=== PATIENT | male | born 1975 | race Caucasian/White ===

== ENCOUNTER 2019-05-07 05:26 | Emergency (ER) | payer MEDICARE, MEDICAID ==
[~2019-05-07] VITALS: Ht 177.8 cm; Wt 77.3 kg
[~2019-05-07 05:26] MED LIST: BACDS PO; DOCU250C96 PO; HYDR-3972 PO
[2019-05-07] MEDS ORDERED: normal saline 1000ML IV soln IVB ONE (06:25)
[2019-05-07] MEDS ORDERED: ketorolac trometh. 30mg/ml inj. IV ONE (06:25)
[2019-05-07 07:09] LABS: ALANINE AMINOTRANSFERASE 40 U/L (12-78); ALBUMIN 3.9 G/DL (3.4-5.0); ALBUMIN/GLOBULIN RATIO 0.8 (1.1-1.5); ALKALINE PHOSPHATASE 103 IU/L (46-116); ANION GAP 9 (8-16); ASPARTATE AMINO TRANSFERASE 18 U/L (10-37); BILIRUBIN,TOTAL 1.1 MG/DL (0.1-1.0); BLOOD UREA NITROGEN 17 MG/DL (7-18); CALCIUM 8.8 MG/DL (8.5-10.1); CHLORIDE 101 MMOL/L (99-107); CREATININE 0.85 MG/DL (0.60-1.10); GLUCOSE 111 MG/DL (70-104); MAGNESIUM 1.8 MG/DL (1.5-2.4); POTASSIUM 3.7 MMOL/L (3.5-5.1); SODIUM 139 MMOL/L (135-145); TOTAL CARBON DIOXIDE 29.3 MMOL/L (24-32); TOTAL PROTEIN 8.7 G/DL (6.4-8.2); eGFR > 90 ML/MIN
[2019-05-07 07:11] LABS: ETHANOL < 0.010 GM/DL (0.0-0.010)
[2019-05-07 07:12] LABS: BASOPHILS % (AUTO) 0.4 % (0-1); EOSINOPHILS # (AUTO) 0.5 X10'3 (0-0.9); EOSINOPHILS % (AUTO) 4.7 % (0-6); HEMATOCRIT 41.8 % (42.0-52.0); LYMPHOCYTES # (AUTO) 3.5 X10'3 (1.1-4.8); MEAN CORPUSCULAR HEMOGLOBIN 29.6 PG (27.0-31.0); MEAN CORPUSCULAR HGB CONC 33.6 g/dL (33.0-36.5); MEAN CORPUSCULAR VOLUME 88.1 FL (78-98); MEAN PLATELET VOLUME 8.3 FL (7.4-10.4); MONOCYTES # (AUTO) 0.8 X10'3 (0-0.9); MONOCYTES % (AUTO) 7.7 % (2-12); NEUTROPHILS % (AUTO) 51.2 % (42-75); PLATELET COUNT 244 X10'3 (140-440); RED BLOOD COUNT 4.74 X10'6 (4.70-6.10); RED CELL DISTRIBUTION WIDTH 13.7 % (11.5-14.5); WHITE BLOOD COUNT 9.8 X10'3 (4.5-11.0)
--- NOTE | 2019-05-07 09:30 | NUR ---
Pt has not urinated for UA specimen, pt refused straight cath. Dr Staples informed.
[2019-05-07] MEDS ORDERED: NO HOME MEDS (12:43)
[2019-05-07 13:22] LABS: CLARITY,URINE CLEAR (Clear); COLOR,URINE YELLOW (Yellow); GLUCOSE, URINE NEGATIVE (Neg); KETONES,URINE NEGATIVE (Neg); LEUKOCYTE ESTERASE ,URINE NEGATIVE (Neg); NITRITES, URINE NEGATIVE (Neg); OCCULT BLOOD,URINE TRACE-INTACT (Neg); PROTEIN,URINE NEGATIVE (Neg); UROBILINOGEN,URINE 0.2 E.U/dL (0.2-1.0)
[2019-05-07 13:24] LABS: UA COLLECTION TYPE URINAL
[2019-05-07] MEDS ORDERED: acetaminophen 325mg tablet PO ONE (13:30)
[2019-05-07 13:32] LABS: URINE AMPHETAMINE SCREEN POSITIVE (Neg); URINE BARBITUATE SCREEN NEGATIVE (Neg); URINE BENZODIAZEPINES SCREEN NEGATIVE (Neg); URINE CANNABINOID SCREEN NEGATIVE (Neg); URINE COCAINE SCREEN NEGATIVE (Neg); URINE METHADONE SCREEN NEGATIVE (Neg); URINE OPIATE SCREEN NEGATIVE (Neg); URINE PHENCYCLIDINE SCREEN NEGATIVE (Neg)
[2019-05-07 13:33] LABS: MUCUS STRANDS MODERATE /LPF (Neg); SQUAMOUS EPITHELIAL CELL,UR MODERATE /LPF (FEW); WBC,URINE 0-4 /HPF (0-4)
[2019-05-07 13:34] LABS: BACTERIA,URINE 1+ /HPF (Neg)
[2019-05-07] MEDS ORDERED: LORazepam 2 mg/ml vial IV ONE (13:40)
--- NOTE | 2019-05-07 14:02 | NUR ---
PACKET FAXED TO [facility]
--- NOTE | 2019-05-07 14:17 | NUR ---
PT TRANSFERRED FROM ER 13 TO OVER FLOW 23 WITH TWO RN ESCORTS.
--- NOTE | 2019-05-07 14:22 | NUR ---
PT IS RESTING.
--- NOTE | 2019-05-07 15:30 | NUR ---
Patient sleeping. No distress observed. Continue to monitor.
--- NOTE | 2019-05-07 17:35 | NUR ---
Note patricia in EDM - 05/07/19 at 1759 by HUMBERTO Patient's BP is elevated. Patient also has ECHAVARRIA. RN advised LUIS Hercules. He stated he will come see him. Patient also wants a nicotine patch. Continue to monitor.
--- NOTE | 2019-05-07 19:00 | NUR ---
Patient is awake and well oriented. He speeks quietly. Low fowlers position in bed. Patient complains of S/I, his plan was to let his amputation, (number one toe on his left foot,) become infected so he can . He states he is depressed. "I'm Gods joke." Patient admits to meth and alcohol use. He lives on the streets. To effect the infection he has not been taking his antibiotics. He states that his plan is not working. Patient complains of pain in the region of his amputation. Wound photos were taken earllier. The patient was given a meal.
[2019-05-07] MEDS ORDERED: HYDROcodone/acetaminophen 5mg/325mg tablet PO ONE (19:30)
--- NOTE | 2019-05-07 19:59 | NUR ---
Patient was given a Warden 5 for his foot pain. He has finished his meal and is resting quietyly.
[2019-05-07] MEDS ORDERED: DOXY100C43 PO (20:48)
[2019-05-07 21:13] VITALS: BP 120/67
== END 2019-05-07 21:20 ==
LOC: ER 05:26
DX: L08.89 Other specified local infections of the skin and subcutaneous tissue (principal); L53.8 Other specified erythematous conditions; E11.42 Type 2 diabetes mellitus with diabetic polyneuropathy; I10 Essential (primary) hypertension; G89.29 Other chronic pain; F41.9 Anxiety disorder, unspecified; F32.9 Major depressive disorder, single episode, unspecified; F15.90 Other stimulant use, unspecified, uncomplicated; Z59.0 Homelessness; Z89.412 Acquired absence of left great toe; Z56.0 Unemployment, unspecified; Z98.890 Other specified postprocedural states; Z79.899 Other long term (current) drug therapy
CPT/HCPCS: 36415; 71045; 73630; 80053; 80305; 80320; 81001; 83605; 83735; 84145; 85025; 85610; 87040; 96374; 96375; 99284; J1885; J2060

== ENCOUNTER 2019-07-23 17:21 | Emergency (ER) | payer MEDICARE, MEDICAID ==
[~2019-07-23] VITALS: Ht 180.3 cm; Wt 76.3 kg
[~2019-07-23 17:21] MED LIST changes: -BACDS PO; -DOCU250C96 PO; -HYDR-3972 PO; +NO HOME MEDS
[2019-07-23 17:25] VITALS: BP 137/89
[2019-07-23] MEDS ORDERED: HYDROcodone/acetaminophen 10/325mg tab PO ONE (18:00)
== END 2019-07-23 19:00 | disposition home or self-care (01) ==
LOC: ER 17:22
DX: S02.609A Fracture of mandible, unspecified, initial encounter for closed fracture (principal); E11.40 Type 2 diabetes mellitus with diabetic neuropathy, unspecified; I10 Essential (primary) hypertension; G89.29 Other chronic pain; F15.90 Other stimulant use, unspecified, uncomplicated; Z59.0 Homelessness; Z56.0 Unemployment, unspecified; Z98.890 Other specified postprocedural states; Z88.5 Allergy status to narcotic agent; Z91.041 Radiographic dye allergy status; X58.XXXA Exposure to other specified factors, initial encounter; Y93.89 Activity, other specified; Y92.89 Other specified places as the place of occurrence of the external cause; Y99.9 Unspecified external cause status
CPT/HCPCS: 99283

== ENCOUNTER 2021-05-31 15:46 | Emergency (ER) | payer MEDICARE, MEDICAID ==
[~2021-05-31] VITALS: Ht 182.9 cm; Wt 81.4 kg
[2021-05-31 16:12] VITALS: BP 114/75
== END 2021-05-31 21:45 | disposition left against medical advice (07) ==
LOC: ER 15:46
DX: R11.10 Vomiting, unspecified (principal); Z53.21 Procedure and treatment not carried out due to patient leaving prior to being seen by health care provider

== ENCOUNTER 2025-02-24 18:41 | Inpatient (IN) | payer MEDICAID, MEDICARE ==
[~2025-02-24] VITALS: Ht 180.3 cm; Wt 79.0 kg
[~2025-02-24 18:41] MED LIST changes: +AMOX-580 PO; +DOXY-224 PO; +FLUC200T28 PO; +HYDR-3972 PO; -NO HOME MEDS
[2025-02-24] MEDS: normal saline 1000ML IV soln IVB ONE ×2 (19:18)
[2025-02-24 19:19] LABS: BASOPHILS # (AUTO) 0.1 X10'3 (0-0.2); BASOPHILS % (AUTO) 0.5 % (0-1); EOSINOPHILS % (AUTO) 0.1 % (0-6); HEMATOCRIT 35.1 % (42.0-52.0); HEMOGLOBIN 12.1 g/dl (14.0-17.9); LYMPHOCYTES % (AUTO) 27.1 % (21-51); MEAN CORPUSCULAR HEMOGLOBIN 29.4 PG (27.0-31.0); MEAN CORPUSCULAR HGB CONC 34.4 g/dL (33.0-36.5); MEAN CORPUSCULAR VOLUME 85.5 FL (78-98); MEAN PLATELET VOLUME 7.3 FL (7.4-10.4); MONOCYTES # (AUTO) 0.6 X10'3 (0-0.9); MONOCYTES % (AUTO) 4.1 % (2-12); NEUTROPHILS # (AUTO) 10.2 X10'3 (1.8-7.7); NEUTROPHILS % (AUTO) 68.2 % (42-75); PLATELET COUNT 269 X10'3 (140-440); RED BLOOD COUNT 4.11 X10'6 (4.70-6.10); WHITE BLOOD COUNT 14.9 X10'3 (4.5-11.0)
[2025-02-24] MEDS: acetaminophen 1,000mg/100ml IV 100 ML IV ONE (19:19)
[2025-02-24 19:31] LABS: ALANINE AMINOTRANSFERASE 18 U/L (12-78); ALBUMIN 2.6 G/DL (3.4-5.0); ALBUMIN/GLOBULIN RATIO 0.5 (1.1-1.5); ALKALINE PHOSPHATASE 111 IU/L (46-116); ANION GAP 7 (8-16); ASPARTATE AMINO TRANSFERASE 10 U/L (10-37); BILIRUBIN,TOTAL 0.9 MG/DL (0.1-1.0); BLOOD UREA NITROGEN 9 MG/DL (7-18); BUN/CREATININE RATIO 9.3 (10.0-20.0); CALCIUM 8.3 MG/DL (8.5-10.1); CHLORIDE 97 MMOL/L (99-107); CREATININE 0.97 MG/DL (0.60-1.10); GLUCOSE 180 MG/DL (70-104); POTASSIUM 3.2 MMOL/L (3.5-5.1); SODIUM 132 MMOL/L (135-145); TOTAL CARBON DIOXIDE 28.3 MMOL/L (24-32); TOTAL PROTEIN 7.7 G/DL (6.4-8.2); eCRCL 98 ML/MIN; eGFR 82 ML/MIN
[2025-02-24] MEDS: ondansetron/PF 4mg/2ml inj IV ONE (20:01)
[2025-02-24] MEDS: HYDROmorphone 1 mg/ml syringe IV ONE (20:01)
--- NOTE | 2025-02-24 20:10 | Physician Documentation ---
History of Present Illness ~ Chief Complaint: Wound Stated Complaint: FOOT PAIN Time Seen by MD: 19:06 OK to notify your PCP?: Yes Primary Medical Doctor: Jag Whitehead MD Source: patient, RN/MD, RN notes reviewed, old records Exam Limitations: no limitations HPI 49 year old male presents to the emergency department for complaints of bilateral foot pain that has been present for two weeks. Patient states that he is homeless and has been feeling weak with fevers for a little more than a week. He has been experiencing ulcers to both of his feet that are expelling puss. He states that they began as blisters and had just gotten worse. He complains of neuropathy.He states that he does not smoke and has been non compliant with diabetes medications. Patient denies any other associated symptoms at this time. Patient denies any other alleviating or exacerbating factors. Tetanus within 5 years?: No Medication Reconciliation Allergies: Coded Allergies: Iodinated Contrast Media (Verified Allergy, Unknown, 05/07/19) Miscellaneous Medications Home Med List (No Home Medications), (Reported) Discontinued Medications Amox Tr/Potassium Clavulanate 875/125 MG (Augmentin 875/125 MG), 1 TAB PO BID Discontinued Reason: patient no longer taking Doxycycline Hyclate (Doxycycline Hyclate), 1 CAP PO Q12H Discontinued Reason: patient no longer taking Fluconazole (Fluconazole), 1 TAB PO DAILY Discontinued Reason: patient no longer taking Hydrocodone Bit/Acetaminophen (Hydrocodon-Acetaminophn 10-325 tablet), 1 EACH PO Q4H PRN for severe pain (7-10) Discontinued Reason: patient no longer taking Past Medical History Past Medical History: Peripheral Neuropathy, Hypertension, Gastritis, Diabetes, Chronic Pain, Cellulitis, *PSYCH*, Anxiety, Depression Past Surgical History: orthopedic surgeries, other Other Past Surgical History: facial surgery, ureteral stent, cardiac cat heterization Patient History: Unobtainable due to patient's condition Other Past Family History: NONCONTRIBUTORY Alcohol Use: Alcoholic Drug Use: marijuana, methamphetamine Lives In: Homeless Occupation: unemployed, disabled Review of Systems All Other Systems at this time: Reviewed and Negative ROS As stated above in the HPI, otherwise all systems are reviewed and negative. Physical Exam Vital Signs: RN Vital Signs have been reviewed: Yes, Temperature: 103.1, Source: Oral, Heart Rate: 109, Respiratory Rate: 16, BP: 128/71, Pulse Oximetry: 96, Weight: 79.000 Pulse Oximetry Reflects: adequate oxygenation Physical Exam General: Foul smelling. The patient is well developed, well nourished, nontoxic appearing and is in no acute distress. Skin: [place], warm and dry with no rashes. HEENT: Head was normocephalic and atraumatic. Eyes - pupils equal, round, reactive to light and accommodation. Extraocular movements were intact. Conjunctivae were nonicteric. Ears - bilateral tympanic membranes were normal. The mouth and oropharynx were clear with moist mucous membranes. There were no pharyngeal exudates or erythema. Neck: Supple and nontender. There was no jugular venous distention, lymphadenopathy, thyromegaly or masses. Chest: Clear to auscultation bilaterally without wheezes, rales or rhonchi. No accessory muscle use. No dullness to percussion. Heart: Rate regular and rhythmic. S1, S2. No murmurs. Palpation of the chest wall was normal. No rubs or thrills. Abdomen: Soft, nontender and nondistended. Positive bowel sounds. No guarding or rebound. No hepatosplenomegaly or palpable masses. Extremities: Bilateral edema on left foot greater than right.Both great toes are missing bilaterally. Right foot has ulcer at base of great toe with necrotic black tips to his 2nd and third toes. Left foot has signs of necrosis on all toes as the tips are black with an ulcer at the base of the great toe. The patient moves all extremities. Pulses were equal and symmetric. Neurologic: Cranial nerves II-XII were intact. Sensation was intact to light touch throughout. Motor strength was 5/5 in all four extremities. Deep tendon reflexes were intact in both upper and lower extremities. Psychologic: The patient was oriented to person, place and time. The patient demonstrated appropriate judgement and insight. Progress Progress Note 0008: The case was discussed with the hospitalist who was informed on the patients case and kindly agreed to admission. Results/Orders Reviewed/noted all lab results: Yes Results/Orders Orders - SILVERIO CARRION MD Culture Blood (02/24/25 18:46) Monitor (02/24/25 18:46) Saline Lock (02/24/25 18:46) Oxygen (02/24/25 18:46) Straight Cath For Urine Sample (02/24/25 18:46) Chest,Single View (02/24/25 19:46) Foot,Limited (Ap/Lat) (02/24/25 ) Foot,Limited (Ap/Lat) (02/24/25 ) Page Hospitalist (02/24/25 23:29) Fill Out Med Reconciliation (02/24/25 23:29) Completed Orders - SILVERIO CARRION MD Cbc/Diff (02/24/25 18:46) Procalcitonin (02/24/25 18:46) BMP (02/24/25 18:46) Electrocardiogram (02/24/25 18:46) CMP (02/24/25 18:46) Lacticsepsis (02/24/25 18:46) Chest,Single View (02/24/25 19:46) Normal Saline 1000ml (Sodium Chloride 10 (02/24/25 19:10) Normal Saline 1000ml (Sodium Chloride 10 (02/24/25 19:10) Acetaminophen 1,000mg/100ml Iv (Ofirmev (02/24/25 19:10) Troponin (Single) (02/24/25 19:05) Foot,Limited (Ap/Lat) (02/24/25 ) Foot,Limited (Ap/Lat) (02/24/25 ) Ondansetron Inj. (Zofran 4mg/2ml Vial) (02/24/25 19:55) Hydromorphone 1 Mg/Ml/Pf (Dilaudid Inj.) (02/24/25 19:55) Ethanol (02/24/25 20:04) MG (02/24/25 20:04) Myoglobin (02/24/25 20:04) CK (02/24/25 20:04) Vancomycin/Ns 1 Gm Add-[place] (Vancomyc (02/24/25 20:10) Ceftriaxone 2gm/D5w 50ml Bag (Rocephin 2 (02/24/25 20:10) Lactic,2hr (02/24/25 20:36) Ketorolac Trometh 15mg/Ml Vial (Toradol (02/24/25 21:05) Magnesium Sulf-Water 2g/50ml (Magnesium (02/24/25 23:30) Potassium Cl 10meq/100ml Bag (Potassium (02/24/25 23:30) Olanzapine Disint. Tablet (Zyprexa Zydis (02/25/25 00:17) Potassium Cl Sr Tablet (K-Dur Tablet) (02/25/25 00:33) Vital Signs 02/24/25 02/24/25 02/24/25 02/24/25 18:57 20:01 20:25 21:15 Temp 103.1 98.8 Pulse 109 92 Resp 18 16 18 18 B/P (MAP) 128/71 123/78 (93) Pulse Ox 96 100 O2 Flow Rate 0 02/24/25 02/24/25 02/24/25 22:00 22:51 23:58 Temp 100.2 Pulse 76 94 Resp 18 16 B/P (MAP) 99/56 (70) 139/90 (106) Pulse Ox 99 99 O2 Flow Rate 0 0 Laboratory Tests Test 02/24/25 19:05 02/24/25 20:46 White Blood Count 14.9 H Red Blood Count 4.11 L Hemoglobin 12.1 L Hematocrit 35.1 L Mean Corpuscular Volume 85.5 Mean Corpuscular Hemoglobin 29.4 Mean Corpuscular Hemoglobin Concent 34.4 Red Cell Distribution Width 14.0 Platelet Count 269 Mean Platelet Volume 7.3 L Neutrophils (%) (Auto) 68.2 Lymphocytes (%) (Auto) 27.1 Monocytes (%) (Auto) 4.1 Eosinophils (%) (Auto) 0.1 Basophils (%) (Auto) 0.5 Neutrophils # (Auto) 10.2 H Lymphocytes # (Auto) 4.0 Monocytes # (Auto) 0.6 Eosinophils # (Auto) 0.0 Basophils # (Auto) 0.1 CBC Comment Sodium Level 132 L Potassium Level 3.2 L Chloride Level 97 L Carbon Dioxide Level 28.3 Anion Gap 7 L Blood Urea Nitrogen 9 Creatinine 0.97 Estimated GFR/1.73 m2 82 BUN/Creatinine Ratio 9.3 L Glucose Level 180 H Lactic Acid Level 2.1 H 1.1 Calcium Level 8.3 L Magnesium Level 1.3 L Total Bilirubin 0.9 Aspartate Amino Transf (AST/SGOT) 10 Alanine Aminotransferase (ALT/SGPT) 18 Alkaline Phosphatase 111 Total Creatine Kinase 47 Myoglobin 34.0 Troponin I High Sensitivity 5 Total Protein 7.7 Albumin 2.6 L Globulin 5.1 H Albumin/Globulin Ratio 0.5 L Procalcitonin < 0.05 Chemistry Comments Ethyl Alcohol Level < 10 Microbiology Date/Time Source Procedure Growth Status 02/24/25 19:13 Blood Iv Start Blood Culture - Preliminary Positive Culture Resulted Re-Evaluation Re-Evaluation : Re-Evaluation: Improved Progress Patient was seen and examined. Patient was given reassurance. Patient is disheveled homeless with some necrotic toes pressure ulcers and bilateral weeping cellulitis of his lower extremities with high fever tachycardia. Patient received Tylenol, antibiotics which include Rocephin and vancomycin followed by multiple fluid boluses. Patient was also found to have some electrolyte abnormalities and was given both magnesium and potassium and for his agitation patient received some Zyprexa. Patient's initial laboratory work shows a WBC elevated at 14.9 hemoglobin 12 and 35 platelets 269 however no left shift. Chemistry shows a potassium of 3.2 and a magnesium of 1.3. Patient's lactic acid was elevated at 2.1 glucose elevated at 180. Sodium a bit low at 132. LFTs were within normal limits procalcitonin was normal. Tox screen was positive for methamphetamine and opiates urinalysis was reassuring but did show some hematuria in elevated WBCs with 1+ bacteria however leukocyte esterase and nitrites were both negative. Patient was then admitted for further workup and care. Vascular studies were ordered to rule out peripheral vascular disease as well as preoperative workup. Continuous monitoring coordinator interpretation shows sinus tachycardia heart rate 110s, abnormal, my interpretation. Pulse oximetry monitor interpretation shows normal oxygenation 96% room air, normal, my interpretation. EKG/XRAY/CT/US/VASC/MRI EKG : Intepreting Monitor?: Yes Additional Comment [id number]: MARTHA Carrion interpreted EKG to reveal sinus tachycardia at a rate of 109. Patient had good R wave progression with normal axis and normal intervals. Qtc of 429. Chest X-Ray : Additional Comments Clinical History CP Comparison None Without Contrast GRANT GARZA, [id number] Technique: Single view portable upright chest x-ray Findings: The lungs are unremarkable. No pleural abnormality. The cardiomediastinal silhouette is unremarkable for an AP view. No acute osseous abnormality. The imaged part of the upper abdomen is unremarkable. Impression: No evidence of acute cardiopulmonary disease This report was electronically signed by Lizbet Siegel MD on 02/24/2025 8:13:29 PM. Electronically Signed by:LIZBET SIEGEL MD Date & Time: 02/24/252015 Bone/Soft Tissue X-Ray (Ext.) #1: Additional Comment Clinical History BILATERAL FEET, ?OSTEO, SEPSIS left Comparison None Without Contrast GRANT GARZA, [id number] TECHNIQUE: 2 views of the left foot. FINDINGS: Postsurgical changes related to left hallux amputation. Soft tissue emphysema is seen in the skin overlaying the head of the first metatarsal bone, clinical correlation to evaluate for localized soft tissue infection/wound is recommended. Degenerative changes of the head of the first metatarsal bone. No destructive lytic or sclerotic lesions. No evidence of acute displaced fracture or dislocation. 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 Tiny superficial subcutaneous soft tissue calcific foci IMPRESSION: No evidence of acute osseous abnormality. Soft tissue emphysema is seen in the skin overlaying the head of the first metatarsal bone in the amputation surgical bed, clinical correlation to evaluate for localized soft tissue infection/wound is recommended. This report was electronically signed by Lizbet Siegel MD on 02/24/2025 8:17:51 PM. Electronically Signed by:LIZBET SIEGEL MD Date & Time: 02/24/252019 Bone/Soft Tissue X-Ray (Ext.) #2: Additional Comment Clinical History BILAT FEET, ? OSTEO, SEPSIS right Comparison None Without Contrast GRANT GARZA, [id number] TECHNIQUE: 2 views of the right foot. FINDINGS: Postsurgical changes related to right hallux amputation. No destructive lytic or sclerotic lesions. No evidence of acute displaced fracture or dislocation. 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 Tiny superficial subcutaneous soft tissue calcific foci IMPRESSION: No evidence of acute osseous abnormality. This report was electronically signed by Lizbet Siegel MD on 02/24/2025 8:15:47 PM. Electronically Signed by:LIZBET SIEGEL MD Date & Time: 02/24/252017 Medical Decision Making Additional info obtained from: old records Differential Dx:Considerations: Include: Abscess, Cellulitis, Dressing change, Healing wound, Other Departure Disposition: 09 ADMITTED INPATIENT Admitted to Inpatient Unit: yes, to hospitalist Admission Level of Care: PCU with Tele Impression: Primary Impression: Sepsis Qualified Codes: A41.9 - Sepsis, unspecified organism Additional Impressions: Bilateral lower extremity edema Bilateral pressure ulcer of feet Hypokalemia Hypomagnesemia Necrotic toes Condition: Fair Referrals: NO PRIMARY CARE PROVIDER (PCP) Education Educated: Patient Educated regarding: diagnosis, treatment, prognosis, need for follow up Critical Care Note Total Time (mins): 30 Critical Care Note The very real possibility of a deterioration of this patient's condition required the highest level of my preparedness for sudden, emergent intervention. I provided critical care services, which included medication orders, frequent reevaluations of the patient's condition and response to treatment, ordering and reviewing test results, and discussing the case with various consultants. Excludes time spent performing separately billable procedures. The critical care time associated with the care of the patient was. 30 minutes sepsis Signature Scribe Signature: Scribed for Silverio Carrion MD by Sumit Gabriel . 02/24/25 20:50 Attestation: The note accurately reflects work and decisions made by me.Silverio Carrion MD 02/24/25 20:10 SILVERIO CARRION MD Feb 24, 2025 20:10 SUMIT BALLARD Feb 24, 2025 20:50
--- NOTE | 2025-02-24 20:16 | RADIOLOGY REPORT ---
Clinical History CP Comparison None Without Contrast GRANT GARZA, [id number] Technique: Single view portable upright chest x-ray Findings: The lungs are unremarkable. No pleural abnormality. The cardiomediastinal silhouette is unremarkable for an AP view. No acute osseous abnormality. The imaged part of the upper abdomen is unremarkable. Impression: No evidence of acute cardiopulmonary disease This report was electronically signed by Lizbet Fink MD on 02/24/2025 8:13:29 PM.
[2025-02-24] MEDS: CefTRIAXone 2gm/D5W 50ml BAG 50 ML IV ONE (20:18)
[2025-02-24] MEDS: vancomycin/NS 1 GM ADD-VANTAGE 250 ML IV ONE (20:18)
--- NOTE | 2025-02-24 20:18 | RADIOLOGY REPORT ---
Clinical History BILAT FEET, ? OSTEO, SEPSIS right Comparison None Without Contrast GRANT GARZA, [id number] TECHNIQUE: 2 views of the right foot. FINDINGS: Postsurgical changes related to right hallux amputation. No destructive lytic or sclerotic lesions. No evidence of acute displaced fracture or dislocation. Osteoarthritis of the small joints of the to es. Tiny superficial subcutaneous soft tissue calcific foci IMPRESSION: No evidence of acute osseous abnormality. This report was electronically signed by Lizbet Fink MD on 02/24/2025 8:15:47 PM.
--- NOTE | 2025-02-24 20:20 | RADIOLOGY REPORT ---
Clinical History BILATERAL FEET, ?OSTEO, SEPSIS left Comparison None Without Contrast GRANT GARZA, [id number] TECHNIQUE: 2 views of the left foot. FINDINGS: Postsurgical changes related to left hallux amputation. Soft tissue emphysema is seen in the skin ov erlaying the head of the first metatarsal bone, clinical correlation to evaluate for localized soft t issue infection/wound is recommended. Degenerative changes of the head of the first metatarsal bone. No destructive lytic or sclerotic lesions. No evidence of acute displaced fracture or dislocation. Osteoarthritis of the small joints of the to es. Tiny superficial subcutaneous soft tissue calcific foci IMPRESSION: No evidence of acute osseous abnormality. Soft tissue emphysema is seen in the skin overlaying the head of the first metatarsal bone in the amp utation surgical bed, clinical correlation to evaluate for localized soft tissue infection/wound is r ecommended. This report was electronically signed by Lizbet Fink MD on 02/24/2025 8:17:51 PM.
[2025-02-24 20:39] LABS: CREATINE KINASE 47 U/L (39-308); MAGNESIUM 1.3 MG/DL (1.5-2.4)
[2025-02-24 20:42] LABS: ETHANOL < 10 MG/DL (<10)
[2025-02-24] MEDS: ketorolac trometh 15mg/ml vial 15 MG/ML ML IV ONE (21:15)
[2025-02-24] MEDS: magnesium sulf-water 2g/50mL 50 ML IV ONE (23:54)
[2025-02-24] MEDS: potassium CL 10mEq/100ml bag 100 ML IV ONE (23:54)
[2025-02-25] VITALS (12 sets, daily range): BP systolic 76–124; BP diastolic 40–77; PULSE 58–109; RESP 12–20; TEMP 97.6–103; O2SAT 94–99
[2025-02-25] MEDS ORDERED: NO HOME MEDS (00:02)
[2025-02-25] MEDS ORDERED: olanzapine 10mg tablet PO STA (00:06)
[2025-02-25] MEDS: OLANZapine 5mg rapidly disint. tablet PO STA (00:34)
[2025-02-25] MEDS ORDERED: potassium Cl 20 mEq SR tablet PO PRN (01:00)
[2025-02-25] MEDS ORDERED: ondansetron/PF 4mg/2ml inj IV PRN (01:00)
[2025-02-25] MEDS ORDERED: magnesium sulf-water 2g/50mL 50 ML IV PRN (01:00)
[2025-02-25] MEDS ORDERED: potassium Cl 40MEQ/1/2NS 520ml 520 ML IV PRN (01:00)
[2025-02-25] MEDS ORDERED: magnesium sulf-water 4G/100mL 100 ML IV PRN (01:00)
[2025-02-25] MEDS ORDERED: magnesium hydroxide 30ml (MOM) UD suspension PO PRN (01:00)
[2025-02-25] MEDS ORDERED: mag hydrox/Alum hydrox/simeth 30ml oral suspension PO PRN (01:00)
[2025-02-25] MEDS: potassium Cl 20 mEq SR tablet PO STA (01:08)
[2025-02-25] MEDS ORDERED: LORazepam 2 mg/ml vial IV PRN (01:50)
[2025-02-25] MEDS ORDERED: haloperidol lactate 5mg/ml inj IM PRN (01:50)
[2025-02-25 03:18] LABS: HEMOGLOBIN A1C 5.6 % (4.5-6.2)
[2025-02-25 03:21] LABS: MAGNESIUM 1.6 MG/DL (1.5-2.4); POTASSIUM 3.8 MMOL/L (3.5-5.1)
[2025-02-25] MEDS: piperacillin/tazo 3.375gm/50ml 50 ML IV SCH (04:23)
--- NOTE | 2025-02-25 04:41 | HISTORY AND PHYSICAL-Residence ---
History & Physical Providers to CC Resident Creating Document: DAVID WHITT, [place] ~ History of Present Illness Primary Medical Doctor: Jag Whitehead MD Reason for Admit\Complaint: Sepsis, bilateral necrotic toes and infected foot wound History of Present Illness 49-year-old male with a past medical history of alcohol use disorder, polysubstance abuse, homelessness was brought in to the ER after the [place] and [place] the [place] called EMS. Patient complains of pain, swelling and redness in his bilateral foot since the past couple of weeks. He reports nonhealing wound, ulcers on the plantar surface of his feet that have been associated with foul smell and discharge. He has been having worsening fatigue weakness, chills and fever during the last two weeks. He also endorses generalized abdominal discomfort and nausea. He stated that he has had similar infected bilateral greater toes in the past for which they have to be amputated. The patient states that he has been homeless for quite a while, does not see any primary care physician and does not take any medication at home. He endorses drinking one pt of hard liquor every other day and also states that he uses her methamphetamine every day. Patient currently denies any other concerns or complaints. Allergies: Coded Allergies: Iodinated Contrast Media (Verified Allergy, Unknown, 05/07/19) Home Medications Home Medications Active Reported No Home Medications (Home Med List) Each Past Medical History Past Medical History Polysubstance abuse, alcohol use disorder, peripheral neuropathy Past Surgical History Surgical History Comment Bilateral greater toe amputation Family History Family History: Unobtainable due to patient's condition Past Social History Social History Comment Homeless Polysubstance abuse Alcohol use disorder Smoking: Chew Alcohol Use: Alcoholic Drug Use: Marijuana, Methamphetamine Lives In: Homeless Occupation: unemployed, disabled ROS All Other Systems: Reviewed and Negative ROS As stated above in the HPI, otherwise all systems are reviewed and negative. Exam Vitals: Vital Signs Date Time Temp Pulse Resp B/P (MAP) Pulse Ox O2 Delivery O2 Flow Rate FiO2 02/25/25 03:30 88 18 116/69 (85) 99 0 02/24/25 23:58 100.2 General: General: Awake, alert, very unkept and unhygienic male in moderate distress. HEENT: Conjunctiva pink, Sclera clear, Mucus Membranes moist. Neck: Supple without masses and tenderness. Resp: Unlabored. Lungs clear to auscultation bilaterally. Heart: Regular Rate and rhythm, normal S1 and S2 without murmur, rub or gallop. Abdomen: Soft and non tender no organomegaly Extremities: Bilateral lower extremity 1+ edema present. Necrotic toes present on bilateral feet. There is open wound on the plantar surface of bilateral feet with foul-smelling purulent discharge. Bilateral 3+ peripheral pulses noted. Skin: Warm and Dry. Neurology: No focal motor or sensory deficits. Diagnostic Data Last Recorded Lab Results: 02/24/25 1905 02/25/25 0257 Advance Care Planning Advanced Care planning: Add on additional 30 min Additional Plan Sepsis Nonhealing infected wound of bilateral feet Necrotic toes on bilateral feet Right foot x-ray-no evidence of osseous abnormalities Left foot x-ray no evidence of acute osseous abnormality. Soft tissue emphysema seen in the skin overlying the 1st metatarsal bone most likely secondary to infected soft tissue/wound. Orthopedic consultation required. Patient will likely require amputation of the necrotic toes. Started the patient on broad-spectrum antibiotic and-IV vancomycin and Zosyn. Follow up with blood cultures and wound cultures. Wound care consulted appreciate recommendations. Follow up with A1c, lipid panel. Follow up with the bilateral lower extremity arterial Doppler and KARINA. Polysubstance abuse Alcohol use disorder Started the patient on alcohol withdrawal protocol. Started him on IV thiamine, folic acid and multivitamin. Fudger to be consulted in view of the patient's meth and alcohol use disorder. Hypokalemia Hyponatremia We will replace potassium as per the protocol. Continue to monitor the electrolytes closely. CODE STATUS: Full code DVT prophylaxis: SCDs GI prophylaxis: P.o. Protonix Diet: Carb controlled diet Disposition: Admitting the patient for evaluation and management of bilateral lower extremity necrotic tissue, nonhealing infected wound on bilateral plantar surfaces of the feet leading to sepsis. Consult resolution specialist in the a.m. tomorrow. David Whitt MD Internal Medicine Resident, PGY-2 Date of Service: Feb 25, 2025 Billing Provider: PAYAL MALDONADO MD Common Visit Codes: 95850-[id number] INP/OBS CARE (HIGH) Assessment/Plan Assessment I evaluated the patient with the help of residents. Discussed the case with them. Reviewed notes by DAVID Ambrosio. Agree with his assessments and plans. I also reviewed the patient's records myself. No additional points at this time. Patient to be maintained on antibiotics. Hemoglobin A1c pending DAVID WHITT, RES Feb 25, 2025 04:41 PAYAL MALDONADO MD Feb 25, 2025 06:13
--- NOTE | 2025-02-25 07:00 | ELECTROCARDIOGRAPH REPORT ---
[facility] Test Date: 2025-02-24 Test Time: 18:49:05 Pat Name: GRANT GARZA Department: EMERGENCY ROOM Room: ORTHO 4022 Gender: M Media Assistant: STEVEN : 1975 Requested By: SILVERIO WINTERS Order Number: [id number] Reading MD: Dr. Silverio Winters Measurements Intervals [place] Rate: 109 P: 0 FL: 0 QRS: 35 QRSD: 105 T: 45 QT: 318 QTc: 429 Interpretive Statements Atrial flutter with predominant 3:1 AV block Baseline wander in lead(s) V2 Electronically Signed On 02-25-2025 18:19:[address] Silverio Winters Please click the below link to view image of tracing.
[2025-02-25 07:03] LABS: BILIRUBIN,URINE MODERATE (Neg); CLARITY,URINE CLEAR (Clear); GLUCOSE, URINE 100 mg/dl (Neg); KETONES,URINE TRACE mg/dl (Neg); LEUKOCYTE ESTERASE ,URINE NEGATIVE (Neg); OCCULT BLOOD,URINE LARGE (Neg); PROTEIN,URINE 30 mg/dl (Neg); UROBILINOGEN,URINE >=8.0 E.U/dL (0.2-1.0)
[2025-02-25 07:10] LABS: COLOR,URINE DARK YELLOW (Yellow); NITRITES, URINE NEGATIVE (Neg); UA COLLECTION TYPE NON-SPECIFIED
[2025-02-25 07:12] LABS: BACTERIA,URINE 1+ /HPF (Neg); MUCUS STRANDS MODERATE /LPF (Neg); RBC,URINE 20-50 /HPF (0-2); SQUAMOUS EPITHELIAL CELL,UR MODERATE /LPF (FEW); WBC,URINE 20-30 /HPF (0-4)
[2025-02-25 07:25] LABS: URINE AMPHETAMINE SCREEN POSITIVE (Neg); URINE BARBITUATE SCREEN NEGATIVE (Neg); URINE BENZODIAZEPINES SCREEN NEGATIVE (Neg); URINE CANNABINOID SCREEN NEGATIVE (Neg); URINE COCAINE SCREEN NEGATIVE (Neg); URINE METHADONE SCREEN NEGATIVE (Neg); URINE OPIATE SCREEN POSITIVE (Neg); URINE PHENCYCLIDINE SCREEN NEGATIVE (Neg)
[2025-02-25] MEDS: pantoprazole 40mg Tablet.DR PO SCH (07:38)
[2025-02-25] MEDS: acetaminophen 325mg tablet PO PRN (07:40)
[2025-02-25] MEDS: morphine 2 MG/ML inj. syringe IV PRN (07:41)
[2025-02-25] MEDS: K and/or MAG REPLACEMENT MC SCH (08:00)
[2025-02-25] MEDS ORDERED: vancomycin/NS 1 GM ADD-VANTAGE 250 ML IV SCH ×2 (08:00→08:06)
[2025-02-25 08:40] LABS: BASOPHILS % (AUTO) 0.3 % (0-1); EOSINOPHILS % (AUTO) 0 % (0-6); HEMATOCRIT 31.5 % (42.0-52.0); HEMOGLOBIN 10.9 g/dl (14.0-17.9); LYMPHOCYTES # (AUTO) 3.2 X10'3 (1.1-4.8); LYMPHOCYTES % (AUTO) 29.6 % (21-51); MEAN CORPUSCULAR HEMOGLOBIN 29.4 PG (27.0-31.0); MEAN CORPUSCULAR HGB CONC 34.5 g/dL (33.0-36.5); MEAN CORPUSCULAR VOLUME 85.3 FL (78-98); MEAN PLATELET VOLUME 7.3 FL (7.4-10.4); MONOCYTES # (AUTO) 0.4 X10'3 (0-0.9); MONOCYTES % (AUTO) 3.9 % (2-12); NEUTROPHILS # (AUTO) 7.2 X10'3 (1.8-7.7); NEUTROPHILS % (AUTO) 66.2 % (42-75); PLATELET COUNT 214 X10'3 (140-440); RED CELL DISTRIBUTION WIDTH 13.7 % (11.5-14.5); WHITE BLOOD COUNT 10.9 X10'3 (4.5-11.0)
[2025-02-25] MEDS: multivitamins, therapeutics tablet PO SCH (08:42)
[2025-02-25] MEDS: thiamine 100mg/ml 2ml inj. IV SCH (08:42)
[2025-02-25] MEDS: docusate sod 100mg capsule PO SCH (08:43)
[2025-02-25 08:52] LABS: ALANINE AMINOTRANSFERASE 13 U/L (12-78); ALBUMIN 2.2 G/DL (3.4-5.0); ALBUMIN/GLOBULIN RATIO 0.5 (1.1-1.5); ALKALINE PHOSPHATASE 106 IU/L (46-116); ANION GAP 5 (8-16); ASPARTATE AMINO TRANSFERASE 13 U/L (10-37); BILIRUBIN,TOTAL 1.2 MG/DL (0.1-1.0); BLOOD UREA NITROGEN 11 MG/DL (7-18); BUN/CREATININE RATIO 13.1 (10.0-20.0); CALCIUM 7.7 MG/DL (8.5-10.1); CHLORIDE 100 MMOL/L (99-107); CREATININE 0.84 MG/DL (0.60-1.10); GLUCOSE 120 MG/DL (70-104); POTASSIUM 3.7 MMOL/L (3.5-5.1); SODIUM 131 MMOL/L (135-145); TOTAL CARBON DIOXIDE 26.2 MMOL/L (24-32); TOTAL PROTEIN 6.5 G/DL (6.4-8.2); eCRCL 113 ML/MIN; eGFR > 90 ML/MIN
[2025-02-25] MEDS: vancomycin/NS 1 GM ADD-VANTAGE 250 ML IV SCH (09:32)
[2025-02-25] MEDS: folic acid 1mg/0.2ml inj IV SCH (09:33)
--- NOTE | 2025-02-25 11:28 | VASCULAR REPORT ---
EXAM: [facility] KARINA ANKLE/BRACHIAL INDEX CLINICAL HISTORY: Nonhealing wounds Peripheral vascular disease COMPARISON: KARINA on DOS: 03/20/19 TECHNIQUE: Bilateral systolic ankle and brachial pressures are obtained, with ankle pulse volume waveforms and i ndices. FINDINGS: Pressures: Right Left Brachial 90 mmHg 110 mmHg PT 110 mmHg 102 mmHg MI 100 mmHg 90 mmHg KARINA: Right Left 1 0.93 Pulse volume waveforms: Triphasic IMPRESSION: Mild left arterial disease at rest No arterial disease at rest. Notified nurse notified about 20 mm HG difference in brachial pressures. 1.0-1.4: normal 0.91-0.99 borderline 0.9: abnormal (i.e. PAD) 0.4-0.9: [id number] PAD <0.4: suggestive of severe PAD
--- NOTE | 2025-02-25 11:46 | VASCULAR REPORT ---
BILATERAL Lower Extremity Arterial Duplex Date: 02/25/2025 09:04 AM Clinical History: Pain with nonhealing wounds Comparison: None Technique: Duplex Doppler evaluation including color Doppler and spectral/pulsed waveform analysis of the lower extremity arteries was performed. Finding: RIGHT: Peak systolic velocities are as follows: PUBLIC RELATIONS PROFESSIONAL 113 cm/s Deep femoral 72 cm/s SFA proximal 101 cm/s SFA mid-portion 146 cm/s SFA distal 122 cm/s Popliteal 135 cm/s Posterior tibial 115 cm/s Anterior tibial 112 cm/s Peroneal 64 cm/s The waveforms are triphasic with diastolic flow. LEFT: Peak systolic velocities are as follows: PUBLIC RELATIONS PROFESSIONAL 100 cm/s Deep femoral 74 cm/s SFA proximal 70 cm/s SFA mid-portion 134 cm/s SFA distal 96 cm/s Popliteal 91 cm/s Posterior tibial 102 cm/s Anterior tibial 100 cm/s Peroneal 76 cm/s The waveforms are triphasic with diastolic flow. REFERENCE VALUES, [facility]) vascular Imaging Lab Criteria: Peak systolic velocity ranges (in cm/sec) are as follows: <150 cm/s - <20 % stenosis 150-200 cm/s - 20-49% stenosis 200-300 cm/s - 50-75% stenosis >300 cm/s -> 75% stenosis IMPRESSION: There is no evidence for peripheral vascular insufficiency in the right lower extremity. There is no evidence for peripheral vascular insufficiency in the left lower extremity. No significant focal stenosis is identified.
[2025-02-25] MEDS: lactose-reduced food (Ensure High Protein) 237ml bottle PO SCH (12:30)
[2025-02-25] MEDS: JUVEN Smoothie Arginine/Glut./Ca2+Bmb (Juven 19.3pkt) 240ml cup PO SCH (19:00)
[2025-02-25] MEDS: acetaminophen 650mg rectal suppository RC ONE (19:13)
[2025-02-25] MEDS: normal saline 1000ml 1,000 ML IV SCH (19:21)
[2025-02-25] MEDS: LORazepam 1 MG tablet PO PRN (19:29)
[2025-02-25] MEDS: VANCOmycin 1250MG/NS 250ml Bag 250 ML IV SCH (22:43)
[2025-02-26] VITALS (9 sets, daily range): BP systolic 82–158; BP diastolic 55–83; PULSE 57–92; RESP 14–18; TEMP 97.8–100; O2SAT 94–98
[2025-02-26 07:37] LABS: BASOPHILS % (AUTO) 0.2 % (0-1); EOSINOPHILS % (AUTO) 0.4 % (0-6); HEMATOCRIT 29.5 % (42.0-52.0); HEMOGLOBIN 10.4 g/dl (14.0-17.9); LYMPHOCYTES % (AUTO) 32.2 % (21-51); MEAN CORPUSCULAR HGB CONC 35.3 g/dL (33.0-36.5); MEAN CORPUSCULAR VOLUME 84.8 FL (78-98); MONOCYTES # (AUTO) 0.5 X10'3 (0-0.9); MONOCYTES % (AUTO) 7.3 % (2-12); NEUTROPHILS # (AUTO) 3.8 X10'3 (1.8-7.7); NEUTROPHILS % (AUTO) 59.9 % (42-75); PLATELET COUNT 190 X10'3 (140-440); RED BLOOD COUNT 3.48 X10'6 (4.70-6.10); RED CELL DISTRIBUTION WIDTH 13.6 % (11.5-14.5); WHITE BLOOD COUNT 6.3 X10'3 (4.5-11.0)
[2025-02-26 07:46] LABS: ALANINE AMINOTRANSFERASE 26 U/L (12-78); ALBUMIN 1.9 G/DL (3.4-5.0); ALBUMIN/GLOBULIN RATIO 0.5 (1.1-1.5); ALKALINE PHOSPHATASE 133 IU/L (46-116); ANION GAP 6 (8-16); ASPARTATE AMINO TRANSFERASE 30 U/L (10-37); BILIRUBIN,TOTAL 0.4 MG/DL (0.1-1.0); BLOOD UREA NITROGEN 10 MG/DL (7-18); BUN/CREATININE RATIO 12.5 (10.0-20.0); CALCIUM 7.8 MG/DL (8.5-10.1); CHLORIDE 104 MMOL/L (99-107); GLUCOSE 162 MG/DL (70-104); POTASSIUM 3.5 MMOL/L (3.5-5.1); SODIUM 136 MMOL/L (135-145); TOTAL CARBON DIOXIDE 25.7 MMOL/L (24-32); TOTAL PROTEIN 6.1 G/DL (6.4-8.2); eCRCL 119 ML/MIN; eGFR > 90 ML/MIN
[2025-02-26 07:48] LABS: CHOL/HDL RATIO 3.1 (0.00-4.99); CHOLESTEROL 99 MG/DL (0-200); HDL CHOLESTEROL 32 MG/DL (35-60); LDL CHOLESTEROL 59 MG/DL (50-100); MAGNESIUM 1.6 MG/DL (1.5-2.4); TRIGLYCERIDES 35 MG/DL (20-135); VANCOMYCIN,TROUGH 6.7 ug/mL (10.0-20.0)
[2025-02-26] MEDS: diazepam inj 5 MG/ML inj. IV PRN (08:29)
[2025-02-26] MEDS: normal saline 500ml IV soln 500 ML IV ONE (09:30)
--- NOTE | 2025-02-26 21:21 | PROGRESS NOTE- Residence ---
Progress Note - Resident Providers to CC Resident Creating Document: SHERYL STOUT RES ~ Antibiotic Timeout Antibiotic Ordered?: Yes Subjective Patient is seen and examined at the bedside today. Awaiting consultation from Dr. Nichole. Objective Vital Signs Date Time Temp Pulse Resp B/P (MAP) Pulse Ox O2 Delivery O2 Flow Rate FiO2 02/26/25 16:45 16 02/26/25 15:58 100.0 02/26/25 10:00 78 158/83 (108) 96 02/26/25 08:01 Room Air 02/26/25 08:00 0.0 Result Diagram: 02/26/25 0710 02/26/25 0710 General: Awake, alert, very unkept and unhygienic male in moderate distress. HEENT: Conjunctiva pink, Sclera clear, Mucus Membranes moist. Neck: Supple without masses and tenderness. Resp: Unlabored. Lungs clear to auscultation bilaterally. Heart: Regular Rate and rhythm, normal S1 and S2 without murmur, rub or gallop. Abdomen: Soft and non tender no organomegaly Extremities: Bilateral lower extremity 1+ edema present. Necrotic toes present on bilateral feet. There is open wound on the plantar surface of bilateral feet with foul-smelling purulent discharge. Bilateral 3+ peripheral pulses noted. Skin: Warm and Dry. Neurology: No focal motor or sensory deficits. Plan Plan Assessment This is a 49-year-old male with past medical history of alcohol use disorder, polysubstance abuse, homelessness, history of great toe amputation, was brought to the ER after he [place] [employer] [place]. Complaints of pain, swelling and redness in the bilateral foot. Plan Sepsis Nonhealing infected wound of bilateral feet Necrotic toes on bilateral feet Right foot x-ray-no evidence of osseous abnormalities Left foot x-ray no evidence of acute osseous abnormality. Soft tissue emphysema seen in the skin overlying the 1st metatarsal bone most likely secondary to infected soft tissue/wound. Left and right foot MRI ordered Arterial and vascular ultrasound of bilateral foot-normal Continued-IV vancomycin and Zosyn. -day two First blood cultures positive for Gram-positive cocci Repeated blood cultures showed no growth after one day. Wound care consulted appreciate recommendations. Polysubstance abuse Alcohol use disorder Started the patient on alcohol withdrawal protocol. Started him on IV thiamine, folic acid and multivitamin. Flexographic Press Helper to be consulted in view of the patient's meth and alcohol use disorder. Hypokalemia Hyponatremia We will replace potassium as per the protocol. Continue to monitor the electrolytes closely. CODE STATUS: Full code DVT prophylaxis: SCDs GI prophylaxis: P.o. Protonix Diet: Carb controlled diet Disposition-follow up with the MRI results. Follow up with Dr. Cora Stout M.D PGY1 Date of Service: February 26, 2025 Billing Provider: LEONARD AUGUSTIN MD Common Visit Codes: [id number] INP/OBS CARE(HIGH) SHERYL STOUT, RES February 26, 2025 21:21 LEONARD AUGUSTIN MD February 27, 2025 07:09
[2025-02-27 05:02] LABS: BASOPHILS % (AUTO) 0.3 % (0-1); EOSINOPHILS # (AUTO) 0.1 X10'3 (0-0.9); EOSINOPHILS % (AUTO) 0.9 % (0-6); HEMATOCRIT 30.7 % (42.0-52.0); HEMOGLOBIN 10.5 g/dl (14.0-17.9); LYMPHOCYTES # (AUTO) 4.3 X10'3 (1.1-4.8); LYMPHOCYTES % (AUTO) 36.8 % (21-51); MEAN CORPUSCULAR HEMOGLOBIN 28.8 PG (27.0-31.0); MEAN CORPUSCULAR HGB CONC 34.1 g/dL (33.0-36.5); MEAN CORPUSCULAR VOLUME 84.6 FL (78-98); MEAN PLATELET VOLUME 7.9 FL (7.4-10.4); MONOCYTES # (AUTO) 0.8 X10'3 (0-0.9); MONOCYTES % (AUTO) 6.8 % (2-12); NEUTROPHILS # (AUTO) 6.5 X10'3 (1.8-7.7); NEUTROPHILS % (AUTO) 55.2 % (42-75); PLATELET COUNT 210 X10'3 (140-440); RED BLOOD COUNT 3.63 X10'6 (4.70-6.10); RED CELL DISTRIBUTION WIDTH 13.6 % (11.5-14.5); WHITE BLOOD COUNT 11.7 X10'3 (4.5-11.0)
[2025-02-27 05:13] LABS: ALANINE AMINOTRANSFERASE 32 U/L (12-78); ALBUMIN/GLOBULIN RATIO 0.5 (1.1-1.5); ALKALINE PHOSPHATASE 148 IU/L (46-116); ANION GAP 4 (8-16); ASPARTATE AMINO TRANSFERASE 24 U/L (10-37); BILIRUBIN,TOTAL 0.3 MG/DL (0.1-1.0); BLOOD UREA NITROGEN 7 MG/DL (7-18); BUN/CREATININE RATIO 9.3 (10.0-20.0); CHLORIDE 100 MMOL/L (99-107); CREATININE 0.75 MG/DL (0.60-1.10); GLUCOSE 106 MG/DL (70-104); MAGNESIUM 1.2 MG/DL (1.5-2.4); POTASSIUM 3.4 MMOL/L (3.5-5.1); SODIUM 132 MMOL/L (135-145); TOTAL CARBON DIOXIDE 27.6 MMOL/L (24-32); TOTAL PROTEIN 6.2 G/DL (6.4-8.2); eCRCL 127 ML/MIN; eGFR > 90 ML/MIN
[2025-02-27] MEDS: VANCOMYCIN LEVEL IV ONE (08:30)
[2025-02-27] MEDS: magnesium Cl slow-release 64mg tablet PO PRN (09:33)
[2025-02-27] MEDS: potassium Cl 20 mEq SR tablet PO PRN (09:33)
[2025-02-27 10:00] VITALS: BP 120/68; PULSE 89; RESP 20; TEMP 98.7; O2SAT 95
--- NOTE | 2025-02-27 13:08 | RADIOLOGY REPORT ---
EXAM: MR MRI LOWER EXTREMITY RIGHT; DATE: 02/26/2025 06:33 PM HISTORY: possible osteomyelitis COMPARISON: MRI LOWER EXTREMITY LEFT on DOS: 03/20/19 TECHNIQUE: Multiplanar, multisequence MRI was performed. FINDINGS: Multiple skin ulcerations are noted. There is bone marrow edema and cortical erosion involving the 2 nd , 3rd and 4th proximal and middle phalanges. Bone marrow edema noted involving the 3rd distal pha lanx . Remote great toe amputation at the level of the MTP joints. No drainable fluid collection note d in this limited unenhanced study. Moderate plantar musculature edema that may reflect reactive sofiya a or myositis. Moderate dorsal foot subcutaneous edema. The flexor and extensor tendons are intact. V isualized plantar fascia is unremarkable. IMPRESSION: 1.Acute osteomyelitis noted involving the 2nd, 3rd and 4th toes with overlying skin ulcerations. No drainable fluid collection.
--- NOTE | 2025-02-27 13:15 | RADIOLOGY REPORT ---
EXAM: MR MRI LOWER EXTREMITY LEFT; DATE: 02/26/2025 06:11 PM HISTORY: possible osteomyelitis COMPARISON: MRI LOWER EXTREMITY LEFT on DOS: 03/20/19 TECHNIQUE: Multiplanar, multisequence MRI of the left foot was performed without IV contrast. FINDINGS: Suboptimal motion degraded study. Cortical erosion noted in the plantar aspect of great toe head associated edema that extends to mid s haft compatible with osteomyelitis. Large overlying plantar ulcer is seen. No drainable fluid colle ction in this limited unenhanced study. 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 Remote great toe ampu tation. Mild plantar musculature edema that may represent reactive edema or myositis. The visualized plantar fascia is unremarkable. No tenosynovitis of the flexor and extensor tendons. IMPRESSION: 1. Acute osteomyelitis of the distal half of the 1st metatarsal with an underlying plantar ulcer. No drainable fluid collection.
--- NOTE | 2025-02-27 14:49 | PROGRESS NOTE- Residence ---
Progress Note - Resident Providers to CC Resident Creating Document: ROSSANA DEVINE, [place] CC: LEONARD AUGUSTIN MD ~ Antibiotic Timeout Antibiotic Ordered?: Yes Subjective Patient is seen and examined at the bedside today. Awaiting consultation from Dr. Nichole. Objective Vital Signs Date Time Temp Pulse Resp B/P (MAP) Pulse Ox O2 Delivery O2 Flow Rate FiO2 02/27/25 12:38 18 02/27/25 08:00 Room Air 02/26/25 20:00 98 02/26/25 18:00 98.6 92 102/59 (73) 02/26/25 08:00 0.0 Result Diagram: 02/27/250 02/27/25 0440 General: Alert, awake, oriented, not in acute distress HEENT: PERRLA, no icterus, pallor, lymphadenopathy, carotid bruit Respiratory system: Bilateral vesicular breath sounds heard, no adventitious breath sounds CVS: S1-S2 heard, no murmurs/rubs/gallop GI: Soft, nontender, no organomegaly, no guarding/rigidity, bowel sounds present Neuro: No focal neurological deficits present Extremities: Bilateral lower extremity 1+ edema present. Necrotic toes present on bilateral feet. There is open wound on the plantar surface of bilateral feet with foul-smelling purulent discharge. Bilateral 3+ peripheral pulses noted. Skin: Warm and dry Assessment Assessment This is a 49-year-old male with past medical history of alcohol use disorder, polysubstance abuse, homelessness, history of great toe amputation, was brought to the ER after he fell down at the [employer]. Complaints of pain, swelling and redness in the bilateral foot. Plan Plan Sepsis Nonhealing infected wound of bilateral feet Necrotic toes on bilateral feet Right foot x-ray-no evidence of osseous abnormalities Left foot x-ray no evidence of acute osseous abnormality. Soft tissue emphysema seen in the skin overlying the 1st metatarsal bone most likely secondary to infected soft tissue/wound. Left and right foot MRI ordered Arterial and vascular ultrasound of bilateral foot-normal Continued-IV vancomycin and Zosyn. -day two First blood cultures positive for Gram-positive cocci Repeated blood cultures showed no growth after one day. Wound care consulted appreciate recommendations. 02/27/25: Continue IV vancomycin and Zosyn (day three) Awaiting Dr. Shepherd recommendations MRI: (left): Acute osteomyelitis noted involving the 2nd, 3rd and 4th toes with overlying skin ulcerations. No drainable fluid collection. MRI: (right): Acute osteomyelitis of the distal half of the 1st metatarsal with an underlying plantar ulcer. No drainable fluid collection Polysubstance abuse Alcohol use disorder On alcohol withdrawal protocol. Started him on IV thiamine, folic acid and multivitamin. Application Engineer to be consulted in view of the patient's meth and alcohol use disorder. Hypokalemia Hyponatremia We will replace potassium as per the protocol. Continue to monitor the electrolytes closely. CODE STATUS: Full code DVT prophylaxis: SCDs GI prophylaxis: P.o. Protonix Diet: Carb controlled diet Disposition: Continue care in ortho, follow up with Dr. Cora Devine MD Internal Medicine, PGY 1 Addendum sepsis with strep, switch to ceftriaxone bilat feet osteo, ID eval Date of Service: February 27, 2025 Billing Provider: LEONARD AUGUSTIN MD Common Visit Codes: [id number] INP/OBS CARE(HIGH) ROSSANA DEVINE, [place] February 27, 2025 14:48 LEONARD AUGUSTIN MD February 27, 2025 21:58
[2025-02-27] MEDS: VANCOmycin 1250MG/NS 250ml Bag 250 ML IV SCH (17:16)
[2025-02-27 18:00] VITALS: BP 112/70; PULSE 78; RESP 20; TEMP 99.7; O2SAT 95
[2025-02-27 20:00] VITALS: RESP 16; O2SAT 96
--- NOTE | 2025-02-27 20:03 | CONSULTATION REPORT ---
History of Present Illness Providers to CC ~ Reason for Admit\Admit Dx: Sepsis, bilateral necrotic toes and infected foot wound Refering MD: Jag Whitehead MD History of Present Illness 49-year-old male with a past medical history of alcohol use disorder, polysubstance abuse, homelessness was brought in to the ER after the patient fell down at the liquor [place] and the staff at the [employer] called EMS. Patient complains of pain, swelling and redness in his bilateral foot since the past couple of weeks. He reports nonhealing wound, ulcers on the plantar surface of his feet that have been associated with foul smell and discharge. He has been having worsening fatigue weakness, chills and fever during the last two weeks. He also endorses generalized abdominal discomfort and nausea. He stated that he has had similar infected bilateral greater toes in the past for which they have to be amputated. MRI has been done showing appears to be osteomyelitis of the left 1st metatarsal Allergies: Coded Allergies: Iodinated Contrast Media (Verified Allergy, Unknown, 05/07/19) Home Medications Home Medications Active Reported No Home Medications (Home Med List) Each Past Family History Family History: Unobtainable due to patient's condition Physical Exam Last Vital Signs Recorded: Temperature: 98.7, Source: Oral, Heart Rate: 89, Respiratory Rate: 15, BP: 120/68, Pulse Oximetry: 95, Weight: 79.000 General Appearance: no apparent distress, ill-appearing Respiratory: lungs clear Extremities There was a large of ulceration under the left 1st metatarsal head draining pus. The great toe is missing and the remaining toes appear to be unaffected. It was not appear to be in the ascending erythema involving the hindfoot of the leg. On the right foot he has a smaller ulceration under the plantar aspect of the 1st metatarsal it does not appear to go as deep. The 2nd through 5th toes appear uninvolved. Exam is otherwise benign. Results Diagram Lab Result Diagram: 02/27/25 0440 02/27/25 044 Assessment/Plan Problems/Diagnosis: (1) Osteomyelitis (2) Osteomyelitis due to secondary diabetes Additional Plan He will need surgery for debridement of both feet and likely partial amputation of the left 1st metatarsal. We will schedule the surgery to be done with the next 24 hours. I discussed this with the patient he was agreeable to proceed. Problem Qualifiers (1) Osteomyelitis: Qualified Codes: M86.579 - Other chronic hematogenous osteomyelitis, unspecified ankle and foot FRANSISCO TIPTON Jr., MD February 27, 2025 20:03
[2025-02-27 22:00] VITALS: BP 125/78; PULSE 89; RESP 20; TEMP 100.1; O2SAT 96
[2025-02-27] MEDS: metroNIDAZOLE-Flagyl 500mg/NS 100 ML IV SCH (23:12)
[2025-02-28] VITALS (23 sets, daily range): BP systolic 78–128; BP diastolic 36–95; PULSE 59–87; RESP 10–20; TEMP 97.3–98.7; O2SAT 88–100
[2025-02-28 06:41] LABS: BASOPHILS # (AUTO) 0.1 X10'3 (0-0.2); BASOPHILS % (AUTO) 0.5 % (0-1); EOSINOPHILS # (AUTO) 0.2 X10'3 (0-0.9); EOSINOPHILS % (AUTO) 1.4 % (0-6); HEMATOCRIT 30.8 % (42.0-52.0); HEMOGLOBIN 10.6 g/dl (14.0-17.9); LYMPHOCYTES # (AUTO) 4.1 X10'3 (1.1-4.8); LYMPHOCYTES % (AUTO) 35.9 % (21-51); MEAN CORPUSCULAR HEMOGLOBIN 29.3 PG (27.0-31.0); MEAN CORPUSCULAR HGB CONC 34.5 g/dL (33.0-36.5); MEAN CORPUSCULAR VOLUME 85.1 FL (78-98); MEAN PLATELET VOLUME 9.1 FL (7.4-10.4); MONOCYTES # (AUTO) 0.8 X10'3 (0-0.9); MONOCYTES % (AUTO) 6.7 % (2-12); NEUTROPHILS # (AUTO) 6.4 X10'3 (1.8-7.7); NEUTROPHILS % (AUTO) 55.5 % (42-75); PLATELET COUNT 216 X10'3 (140-440); RED BLOOD COUNT 3.62 X10'6 (4.70-6.10); RED CELL DISTRIBUTION WIDTH 13.6 % (11.5-14.5); WHITE BLOOD COUNT 11.5 X10'3 (4.5-11.0)
[2025-02-28 07:04] LABS: ALANINE AMINOTRANSFERASE 28 U/L (12-78); ALBUMIN/GLOBULIN RATIO 0.4 (1.1-1.5); ALKALINE PHOSPHATASE 172 IU/L (46-116); ANION GAP 3 (8-16); ASPARTATE AMINO TRANSFERASE 21 U/L (10-37); BILIRUBIN,TOTAL 0.3 MG/DL (0.1-1.0); BLOOD UREA NITROGEN 9 MG/DL (7-18); BUN/CREATININE RATIO 12.9 (10.0-20.0); CALCIUM 8.5 MG/DL (8.5-10.1); CHLORIDE 102 MMOL/L (99-107); GLUCOSE 120 MG/DL (70-104); MAGNESIUM 1.5 MG/DL (1.5-2.4); POTASSIUM 4.2 MMOL/L (3.5-5.1); SODIUM 133 MMOL/L (135-145); TOTAL PROTEIN 6.7 G/DL (6.4-8.2); eCRCL 136 ML/MIN; eGFR > 90 ML/MIN
[2025-02-28] MEDS ORDERED: HYDROmorphone/PF 0.2 MG/ML SYRINGE IV PRN ×2 (07:40)
[2025-02-28] MEDS: ringers solution, lacted 1,000 ML IV SCH (07:40)
[2025-02-28] MEDS ORDERED: fentaNYL/PF 50MCG/1 ML 2ML syringe IV PRN (07:40)
[2025-02-28] MEDS ORDERED: enalaprilat 1.25mg/ml 2ml vial IV PRN (07:40)
[2025-02-28] MEDS ORDERED: ondansetron/PF 4mg/2ml inj IV PRN (07:40)
[2025-02-28] MEDS ORDERED: labetalol 20mg/4ml (5mg/ml) syringe IV PRN (07:40)
[2025-02-28] MEDS: CefTRIAXone 2gm/D5W 50ml BAG 50 ML IV SCH (08:00)
[2025-02-28] MEDS: thiamine 100mg tablet PO SCH (08:00)
[2025-02-28] MEDS: VANCOMYCIN LEVEL IV ONE (08:30)
[2025-02-28] MEDS ORDERED: BUPIVAcaine 2.5mg/ml inj 50ml vial (contains preservative) ONE (09:42)
[2025-02-28] MEDS ORDERED: metroNIDAZOLE 500mg/NS 100ml premix IV ONE (09:57)
[2025-02-28] MEDS ORDERED: midazolam 1 mg/ML 2ml injection ONE (10:05)
[2025-02-28] MEDS ORDERED: fentaNYL/PF 50MCG/1 ML 2ML syringe ONE (10:05)
[2025-02-28] MEDS ORDERED: propofol inj 20 ML IV ONE (10:10)
[2025-02-28] MEDS ORDERED: LIDOcaine 2% (20mg/ml) 5ml vial ONE (10:10)
[2025-02-28] MEDS ORDERED: ePHEDrine 50MG/ML INJ. ONE (10:31)
--- NOTE | 2025-02-28 10:56 | OPERATIVE REPORT ---
Operative Report Providers to ~ Date of Procedure: February 28, 2025 Pre-Operative Diagnosis: Bilateral foot osteomyelitis Post-Operative Diagnosis Right 2nd and 3rd toe osteomyelitis and diabetic foot ulcer. Left 1st metatarsal chronic osteomyelitis and diabetic foot ulcer Procedure Performed Right foot debridement and amputation of the 2nd and 3rd toes. Left foot debridement and amputation of 1st metatarsal midshaft level Surgeon: Nick Shepherd MD Tile Power Shear Operator None Anesthesiologist: Robe Patten Type of Anesthesia: General Findings: Exposed left 1st metatarsal bone with a chronic changes. Open exposure of right 2nd and 3rd toes with bone destruction. Complications None Prosthetics\Implants used: None Estimated Blood Loss: None Specimen Removed: Deep wound culture left foot Description of Procedure: The patient is a 49-year-old man with a history of a diabetic neuropathy and previous great toe amputations. He presented with a bilateral plantar ulcers and open wounds to the right 2nd and 3rd toes. Imaging studies revealed bone destruction and chronic osteomyelitis. Surgery is indicated to the remove infection. Risks and benefits were discussed with the patient. Some of the risks of this type procedure include but are not limited to infection, bleeding, need for further surgery, wound healing issues. He agreed to proceed. He was given a general anesthetic in the operating room and both legs were prepped and draped in usual manner. We started with the right foot while racing the 2nd and 3rd toes the 2nd toe disarticulated at the interphalangeal joint and the proximal phalanx was the essentially pulverized. Amputation was done around the 2nd toe with a dorsal flap and rongeur was used to shortened the proximal phalanx. On the 3rd toe similar findings were found with exposed tendon and unstable bone. Amputation was done of the proximal phalanx level and skin flaps were trimmed. There was also a plantar ulcer under this 1st metatarsal head. This was debrided down to deeper tissues but it did not penetrate down to the bone. The toe amputation levels were repaired using Prolene suture and a dressing was applied over the plantar ulcer. A sterile dressing was then applied and the tourniquet which had been placed on the calf was released. Attention was turned to the left foot where the with a large plantar ulceration the this was probed and went directly to the metatarsal head. Debridement was done in the bone was exposed. This point of the elected to do amputation of the distal portion of the metatarsal to obtain closure. An incision was made over the medial aspect of the metatarsal down to bone and at the midshaft level a angular cut was made with a power saw and the distal half of the metatarsal was excised. He edges were trimmed over the plantar ulcer which was incorporated in the repair which was done loosely with a 0 Prolene suture. Marcaine was injected and a dressing was then applied. The patient was then awakened and taken to the recovery room in stable condition and he tolerated the procedure well. NICK SHEPHERD Jr., MD February 28, 2025 10:56
[2025-02-28] MEDS: fentaNYL/PF 50MCG/1 ML 2ML syringe IV PRN (11:37)
[2025-02-28] MEDS ORDERED: HYDROcodone/acetaminophen 5mg/325mg tablet PO PRN (12:00)
[2025-02-28] MEDS: ketorolac trometh 30MG/ML vial 30 MG/ML VIAL IV ONE (12:14)
[2025-02-28] MEDS: HYDROcodone/acetaminophen 10/325mg tab PO PRN (12:14)
--- NOTE | 2025-02-28 16:46 | PROGRESS NOTE- Residence ---
Progress Note - Resident Providers to CC Resident Creating Document: DEBBIE RATLIFF, RES ~ Antibiotic Timeout Antibiotic Ordered?: Yes Subjective pt was taken to the OR this morning. ID was requested for the pt bilateral feet OM Objective Vital Signs Date Time Temp Pulse Resp B/P (MAP) Pulse Ox O2 Delivery O2 Flow Rate FiO2 02/28/25 15:55 16 02/28/25 12:40 74 105/66 (79) 97 Nasal Cannula 2.0 02/28/25 10:54 98.2 Result Diagram: 02/28/25 0540 02/28/25 0540 General: Alert, awake, oriented, not in acute distress HEENT: PERRLA, no icterus, pallor, lymphadenopathy, carotid bruit Respiratory system: Bilateral vesicular breath sounds heard, no adventitious breath sounds CVS: S1-S2 heard, no murmurs/rubs/gallop GI: Soft, nontender, no organomegaly, no guarding/rigidity, bowel sounds present Neuro: No focal neurological deficits present Extremities: Bilateral lower extremity 1+ edema present. Necrotic toes present on bilateral feet. There is open wound on the plantar surface of bilateral feet with foul-smelling purulent discharge. Bilateral 3+ peripheral pulses noted. Skin: Warm and dry Assessment Assessment This is a 49-year-old male with past medical history of alcohol use disorder, polysubstance abuse, homelessness, history of great toe amputation, was brought to the ER after he fell down at the [employer] [place]. Complaints of pain, swelling and redness in the bilateral foot. Bilateral foot /right 2nd and 3rd toe osteomyelitis and diabetic foot ulcer, left 5th metatarsal chronic osteomyelitis and diabetic foot ulcer osteomyelitis-s/p right foot debridement and amputation of the 2nd and 3rd toes, left foot debridement amputation of the 1st metatarsal midshaft level on 02/28/[address] Shepherd Plan Plan # Sepsis # Nonhealing infected wound of bilateral feet # Necrotic toes on bilateral feet # Bilateral foot /right 2nd and 3rd toe osteomyelitis and diabetic foot ulcer, left 5th metatarsal chronic osteomyelitis # s/p right foot debridement and amputation of the 2nd and 3rd toes, left foot debridement amputation of the 1st metatarsal midshaft level on 02/28/[address] Shepherd # leukocytosis Right foot x-ray-no evidence of osseous abnormalities Left foot x-ray no evidence of acute osseous abnormality. Soft tissue emphysema seen in the skin overlying the 1st metatarsal bone most likely secondary to infected soft tissue/wound. Left and right foot MRI ordered Arterial and vascular ultrasound of bilateral foot-normal Continued-IV vancomycin and Zosyn. -day two First blood cultures positive for Gram-positive cocci Repeated blood cultures showed no growth after one day. Wound care consulted appreciate recommendations. 02/27/25: discontinue IV vancomycin and Zosyn (day three) , switch to IV ceftriaxone and metronidazole day one Awaiting Dr. Shepherd recommendations MRI: (left): Acute osteomyelitis noted involving the 2nd, 3rd and 4th toes with overlying skin ulcerations. No drainable fluid collection. MRI: (right): Acute osteomyelitis of the distal half of the 1st metatarsal with an underlying plantar ulcer. No drainable fluid collection 02/28/2025: Continue IV ceftriaxone and metronidazole-day two -follow up with the Dr. Tidwell recommendations and PT eval, wound dressing and care -pain control management # Polysubstance abuse # Alcohol use disorder On alcohol withdrawal protocol. Continue him on IV thiamine, folic acid and multivitamin. Lime Plant Operator to be consulted in view of the patient's meth and alcohol use disorder. # Hypokalemia # Hyponatremia We will replace potassium as per the protocol. Continue to monitor the electrolytes closely. 02/28/2025 mild hyponatremia 133, no signs of abnormal new changes neurologically. Monitor CMP daily. CODE STATUS: Full code DVT prophylaxis: SCDs GI prophylaxis: P.o. Protonix Diet: Carb controlled diet Disposition: Continue care in ortho, follow up with Dr. Shepherd for the postop care management, PT eval plan and DC plan Resident MD attestation: Patient was seen and examined with attending MD, Dr. Wilfred RATLIFF MD Internal Medicine Resident, PGY2 [facility] Date of Service: February 28, 2025 Billing Provider: LEONARD AUGUSTIN MD Common Visit Codes: [id number] INP/OBS CARE(HIGH) DEBBIE RATLIFF RES February 28, 2025 16:46 LEONARD AUGUSTIN MD March 01, 2025 07:36
[2025-03-01] VITALS (7 sets, daily range): BP systolic 110–125; BP diastolic 66–71; PULSE 61–76; RESP 16–18; TEMP 97.2–97.9; O2SAT 92–98
[2025-03-01 06:29] LABS: BASOPHILS # (AUTO) 0.1 X10'3 (0-0.2); BASOPHILS % (AUTO) 0.8 % (0-1); EOSINOPHILS % (AUTO) 0.2 % (0-6); HEMATOCRIT 30.4 % (42.0-52.0); HEMOGLOBIN 10.5 g/dl (14.0-17.9); LYMPHOCYTES # (AUTO) 3.4 X10'3 (1.1-4.8); LYMPHOCYTES % (AUTO) 22.8 % (21-51); MEAN CORPUSCULAR HEMOGLOBIN 29.3 PG (27.0-31.0); MEAN CORPUSCULAR HGB CONC 34.6 g/dL (33.0-36.5); MEAN CORPUSCULAR VOLUME 84.5 FL (78-98); MONOCYTES # (AUTO) 0.8 X10'3 (0-0.9); MONOCYTES % (AUTO) 5.2 % (2-12); NEUTROPHILS # (AUTO) 10.6 X10'3 (1.8-7.7); PLATELET COUNT 231 X10'3 (140-440); RED BLOOD COUNT 3.59 X10'6 (4.70-6.10); RED CELL DISTRIBUTION WIDTH 13.5 % (11.5-14.5); WHITE BLOOD COUNT 14.9 X10'3 (4.5-11.0)
[2025-03-01 06:54] LABS: ALANINE AMINOTRANSFERASE 29 U/L (12-78); ALBUMIN/GLOBULIN RATIO 0.4 (1.1-1.5); ALKALINE PHOSPHATASE 161 IU/L (46-116); ANION GAP 6 (8-16); ASPARTATE AMINO TRANSFERASE 14 U/L (10-37); BILIRUBIN,TOTAL 0.2 MG/DL (0.1-1.0); BLOOD UREA NITROGEN 18 MG/DL (7-18); CALCIUM 8.6 MG/DL (8.5-10.1); CHLORIDE 101 MMOL/L (99-107); CREATININE 0.82 MG/DL (0.60-1.10); GLUCOSE 310 MG/DL (70-104); MAGNESIUM 1.9 MG/DL (1.5-2.4); POTASSIUM 4.6 MMOL/L (3.5-5.1); SODIUM 135 MMOL/L (135-145); TOTAL CARBON DIOXIDE 27.8 MMOL/L (24-32); TOTAL PROTEIN 6.6 G/DL (6.4-8.2); eCRCL 116 ML/MIN; eGFR > 90 ML/MIN
[2025-03-01] MEDS: folic acid 1mg tablet PO SCH (08:23)
--- NOTE | 2025-03-01 12:21 | PROGRESS NOTE ---
Progress Note Ortho Ortho Post Op Day #: 1 ROS ROS No new complaints Exam Exam: Vital signs are stable, Wound clean and dry Problem/Assessment/Plan Problems/Diagnosis: (1) Osteomyelitis (2) Osteomyelitis due to secondary diabetes Additional Plan dressing change tomorrow Results/Orders Result Diagram: 03/01/25 0532 03/01/25 0532 Re-Evaluation Re-Evaluation : Re-Evaluation: Improved Problem Qualifiers (1) Osteomyelitis: Qualified Codes: M86.579 - Other chronic hematogenous osteomyelitis, unspecified ankle and foot FRANSISCO TIPTON Jr., MD March 01, 2025 12:21
--- NOTE | 2025-03-01 13:50 | PROGRESS NOTE- Residence ---
Progress Note - Resident Providers to CC Resident Creating Document: ERNESTO YOO RES ~ Central Line/PICC still needed: N\A Heart-Non Protocol Heart Indications Met/Not Met: F/C Indications Not Met Antibiotic Timeout Antibiotic Ordered?: Yes Subjective POD day one. Patient irritable and frustrated about the course of events. Agreeable for rehab/LTAC. Objective Vital Signs Date Time Temp Pulse Resp B/P (MAP) Pulse Ox O2 Delivery O2 Flow Rate FiO2 03/01/25 12:20 18 03/01/25 08:59 Room Air 03/01/25 05:00 97.8 61 125/71 (89) 97 02/28/25 20:00 2.0 Result Diagram: 03/01/25 0532 03/01/25 0532 General: Awake and Alert, no acute distress. HEENT: Conjunctiva pink, Sclera clear, Mucus Membranes moist. Resp: Unlabored. Lungs clear to auscultation bilaterally. Heart: Regular Rate and rhythm, normal S1 and S2 without murmur, rub or gallop. Abdomen: Soft and non tender no organomegaly Extremities: Right and left feet are draped in dressings. Minimal secretion noted Skin: Warm and Dry. Assessment Assessment This is a 49-year-old male with past medical history of alcohol use disorder, polysubstance abuse, homelessness, history of great toe amputation, was brought to the ER after he fell down at the [employer] band. Complaints of pain, swelling and redness in the bilateral foot. Right 2nd, 3rd and 4th toe osteomyelitis, left 1st metatarsal chronic osteomyelitis noted on the MRI. Status post debridement and amputation of the 2nd and 3rd toes of the right foot and the 1st metatarsal of the left foot by Dr. Shepherd. Plan Plan 1. Hematogeneous Osteomyelitis of the bilateral feet: Second, 3rd and 4th dose of the right foot and the 1st metatarsal of the left foot Sepsis POA secondary to above POD day one status post debridement and amputation by Dr. Shepherd 02/25/2025: Vascular ultrasound and arterial ultrasound negative for arterial insufficiency in the right foot but presence of mild left arterial disease at rest - Blood culture positive for Streptococcus pyogenes, pansensitive 02/27/25: discontinue IV vancomycin and Zosyn (day three) , switch to IV ceftriaxone and metronidazole day one Awaiting Dr. Shepherd recommendations MRI: (left): Acute osteomyelitis noted involving the 2nd, 3rd and 4th toes with overlying skin ulcerations. No drainable fluid collection. MRI: (right): Acute osteomyelitis of the distal half of the 1st metatarsal with an underlying plantar ulcer. No drainable fluid collection 02/28/2025: Continue IV ceftriaxone and metronidazole-day two -follow up with the Dr. Shepherd recommendations and PT eval, wound dressing and care -pain control management 03/01/25: Dr. Leone to see the patient tomorrow for antibiotic adjustment - mild leukocytosis likely stress induced - continue IV Rocephin and Flagyl- day three - wound cultures positive for Gram-positive cocci, pattern of arrangement unspecified - follow echocardiogram due to history of drug abuse and positive blood cultures; last echo in 2014 - ESR trending up; CRP 7.9. Daily trending 2. Polysubstance abuse Alcohol use disorder On alcohol withdrawal protocol. Continue him on IV thiamine, folic acid and multivitamin. Video Journalist to be consulted in view of the patient's meth and alcohol use disorder. 3. Hypokalemia Hyponatremia 02/28/2025 mild hyponatremia 133, no signs of abnormal new changes neurologically. Monitor CMP daily. 03/01/25: Resolved. Electrolyte replacements as protocol. 4. History of diabetes mellitus: A1c from 3393-1981 elevated with a max of 9.2 Review again in 2014 showed resolution of the A1c and has maintained normal since Pancreas appears normal on CT scan CODE STATUS: Full code DVT prophylaxis: SCDs GI prophylaxis: P.o. Protonix Diet: Carb controlled diet Disposition: Awaiting Infectious diseases consult for antibiotic therapy. Plan to discharge to an LTAC when stable Ernesto Yoo PGY2, Internal medicine resident Date of Service: March 01, 2025 Billing Provider: LEONARD AUGUSTIN MD Common Visit Codes: [id number] INP/OBS CARE(HIGH) ERNESTO YOO, [place] March 01, 2025 13:50 LEONARD AUGUSTIN MD March 01, 2025 20:44
[2025-03-01] MEDS: HYDROmorphone inj. 0.5 MG/0.5 ML DISP.SYRIN IV PRN (14:18)
--- NOTE | 2025-03-01 18:20 | CARDIOLOGY REPORT ---
APPROVED REPORT EXAM: Comprehensive 2D, Doppler, and color-flow Echocardiogram. Patient Location: [address] Blood Pressure: 112/71 mmHg Heart Rate: 66 bpm Rhythm: SINUS Indications EVALUATE FOR SUBACUTE BACTERIAL ENDOCARDITIS POSITIVE BLOOD CULTURES Zanjero: none Previous echo: 10/18/15 [facility] (EF 65-70%, trace TR, trace MR, mild MAC) 2D Dimensions RVDd 4.6 cm LA Diam5.5 cm IVSd 1.2 (0.7-1.1cm) LVDd 4.6 cm PWd 1.3 (0.7-1.1cm) IVSs 1.2 (0.8-1.2cm) LVDs 3.4 (2.5-4.0cm) PWs 1.5 (0.8-1.2cm) LVOT Diameter 2.23 (1.8-2.4cm) LVEF(%) 52.7 (>50%) IVC 18.47 mmFS (%) 27.0 % SV 51.9 ml CO 3.5 L/min M-Mode Dimensions Left Atrium(MM) 4.36 (2.5-4.0cm) Aortic Root 3.04 (2.2-3.7cm) Aortic Cusp Exc 2.12 (1.5-2.0cm) MV EPSS 0.8 (<0.5cm) Biplane 2D LA Volumes LA ESV Index 39.04 mL/m2 Aortic Valve AoV Peak Lionel. 160.0 cm/s AoV VTI 34.2 cm AO Peak GR. 10.2 mmHg AO Mean GR. 6 mmHg LVOT VTI 32.16 cm LVOT Peak Lionel. 126.0 cm/s NEELAM(VTI)/BSA 3.66 cm2/m2 NEELAM (VTI) 3.66 cm2 Mitral Valve MV E Velocity 92.9 cm/s MV Peak Gr. 4 mmHg MV DECEL TIME 228 ms MV A Velocity 63.5 cm/s MV PHT 48 ms E/A Ratio 1.5 MVA (PHT) 4.58 cm2 MV FDkh762.8 cm/s TDI Medial E' P. V 10.84 cm/s E/Medial E' 8.6 Tricuspid Valve TR P. Velocity 237 cm/s TR Peak Gr. 22 mmHg Pulmonary Vein S1 Velocity 43.6 cm/s D2 Velocity 36.6 cm/s PVa Ydlturpv82.4 cm/s PVa [id number] msec LEFT VENTRICLE Normal LV size and mildy reduced function. Mild concentric hypertrophy. LVEF is 50-55%. RIGHT VENTRICLE RV is moderately dilated with normal systolic function. ATRIA Left atrium is moderately dilated. AORTIC VALVE Trileaflet AV appears normal without stenosis. Trace insufficiency. MITRAL VALVE Mild MV annular calcification without stenosis. Trace regurgitation. TRICUSPID VALVE TV appears structurally normal with mild regurgitation. PULMONIC VALVE Normal PV without stenosis, physiologic insufficiency. GREAT VESSELS Aortic root is normal in size. PERICARDIUM Normal pericardium. No effusion. Conclusion Normal LV size and mildy reduced function. Mild concentric hypertrophy. LVEF is 50-55%. RV is moderately dilated with normal systolic function. Left atrium is moderately dilated. Trileaflet AV appears normal without stenosis. Trace insufficiency. Mild MV annular calcification without stenosis. Trace regurgitation. TV appears structurally normal with mild regurgitation. Normal pericardium. No effusion.
[2025-03-02 06:00] VITALS: BP 101/64; PULSE 66; RESP 18; TEMP 97; O2SAT 97
[2025-03-02 06:08] LABS: BASOPHILS # (AUTO) 0.1 X10'3 (0-0.2); BASOPHILS % (AUTO) 0.9 % (0-1); EOSINOPHILS # (AUTO) 0.2 X10'3 (0-0.9); EOSINOPHILS % (AUTO) 1.5 % (0-6); HEMATOCRIT 32.2 % (42.0-52.0); LYMPHOCYTES # (AUTO) 6.1 X10'3 (1.1-4.8); MEAN CORPUSCULAR HEMOGLOBIN 29.6 PG (27.0-31.0); MEAN CORPUSCULAR HGB CONC 34.3 g/dL (33.0-36.5); MEAN CORPUSCULAR VOLUME 86.3 FL (78-98); MEAN PLATELET VOLUME 8.6 FL (7.4-10.4); MONOCYTES # (AUTO) 0.8 X10'3 (0-0.9); MONOCYTES % (AUTO) 5.9 % (2-12); NEUTROPHILS % (AUTO) 45.7 % (42-75); PLATELET COUNT 283 X10'3 (140-440); RED BLOOD COUNT 3.73 X10'6 (4.70-6.10); RED CELL DISTRIBUTION WIDTH 13.7 % (11.5-14.5); WHITE BLOOD COUNT 13.2 X10'3 (4.5-11.0)
[2025-03-02 06:38] LABS: ALANINE AMINOTRANSFERASE 34 U/L (12-78); ALBUMIN/GLOBULIN RATIO 0.5 (1.1-1.5); ALKALINE PHOSPHATASE 147 IU/L (46-116); ANION GAP 4 (8-16); ASPARTATE AMINO TRANSFERASE 20 U/L (10-37); BILIRUBIN,TOTAL 0.2 MG/DL (0.1-1.0); BLOOD UREA NITROGEN 15 MG/DL (7-18); BUN/CREATININE RATIO 23.4 (10.0-20.0); CALCIUM 8.2 MG/DL (8.5-10.1); CHLORIDE 102 MMOL/L (99-107); CREATININE 0.64 MG/DL (0.60-1.10); GLUCOSE 200 MG/DL (70-104); POTASSIUM 4.5 MMOL/L (3.5-5.1); SODIUM 136 MMOL/L (135-145); TOTAL CARBON DIOXIDE 29.6 MMOL/L (24-32); TOTAL PROTEIN 6.4 G/DL (6.4-8.2); eCRCL 149 ML/MIN; eGFR > 90 ML/MIN
[2025-03-02] MEDS ORDERED: dextrose 50%-water 50ml dispensing syringe IV PRN ×2 (07:55)
[2025-03-02] MEDS ORDERED: DEXTROSE 15 GM of carb/4 tabs (each vial/BOTTLE has 4 tablets) PO PRN ×2 (07:55)
[2025-03-02] MEDS ORDERED: glucagon, human recombinant 1mg kit SUBCUT PRN (07:55)
[2025-03-02] MEDS: INSULIN LISPRO 100 UNIT/ML INSULN.PEN MULTI-DOSE SQ SCH (12:00)
--- NOTE | 2025-03-02 14:26 | PROGRESS NOTE ---
Progress Note Ortho Ortho Post Op Day #: 2 ROS ROS No new complaints Exam Exam: Vital signs are stable, Wound clean and dry Problem/Assessment/Plan Assessment\Plan: Cont. Physicial Therapy Problems/Diagnosis: (1) Osteomyelitis (2) Osteomyelitis due to secondary diabetes Additional Plan wound care ordered Results/Orders Result Diagram: 03/02/2554503/02/25545 Re-Evaluation Re-Evaluation : Re-Evaluation: Improved Problem Qualifiers (1) Osteomyelitis: Qualified Codes: M86.579 - Other chronic hematogenous osteomyelitis, unspecified ankle and foot FRANSISCO TIPTON Jr., MD March 02, 2025 14:26
--- NOTE | 2025-03-02 14:33 | PROGRESS NOTE ---
Progress Note Ortho Ortho Post Op Day #: 2 ROS ROS No new complaints Exam Exam: Vital signs are stable, Dressing clean and dry Problem/Assessment/Plan Assessment\Plan: Cont. Physicial Therapy Problems/Diagnosis: (1) Osteomyelitis (2) Osteomyelitis due to secondary diabetes Additional Plan order wound care Results/Orders Result Diagram: 03/02/2554503/02/25545 Re-Evaluation Re-Evaluation : Re-Evaluation: Improved Problem Qualifiers (1) Osteomyelitis: Qualified Codes: M86.579 - Other chronic hematogenous osteomyelitis, unspecified ankle and foot FRANSISCO TIPTON Jr., MD March 02, 2025 14:33
[2025-03-02] MEDS ORDERED: HYDROcodone/acetaminophen 5mg/325mg tablet PO PRN (14:40)
--- NOTE | 2025-03-02 14:57 | PROGRESS NOTE- Residence ---
Progress Note - Resident Providers to CC Resident Creating Document: GOVIND SIERRA RES ~ Antibiotic Timeout Antibiotic Ordered?: Yes Subjective Seen and examined the patient at bedside today. Patient is agitated, irritable, frustated the morning he is coded costa. He had a argument with the nurse. He is seeking more Dilaudid for his severe pain. Counseled him regarding the oral pain medications and IV pain medications and complaince. Objective Vital Signs Date Time Temp Pulse Resp B/P (MAP) Pulse Ox O2 Delivery O2 Flow Rate FiO2 03/02/25 13:12 16 03/01/25 22:00 97.9 67 110/66 (81) 98 Room Air 02/28/25 20:00 2.0 Result Diagram: 03/02/25 0546 03/02/25 0546 General: Awake and Alert, no acute distress. HEENT: Conjunctiva pink, Sclera clear, Mucus Membranes moist. Resp: Unlabored. Lungs clear to auscultation bilaterally. Heart: Regular Rate and rhythm, normal S1 and S2 without murmur, rub or gallop. Abdomen: Soft and non tender no organomegaly Extremities: Right and left feet are looking dry. Minimal secretion noted Skin: Warm and Dry. Advance Care Planning Advanced Care plannin - 30 Minutes Assessment Assessment This is a 49-year-old male with past medical history of alcohol use disorder, polysubstance abuse, homelessness, history of great toe amputation, was brought to the ER after he fell down at the [employer] band. Complaints of pain, swelling and redness in the bilateral foot. Right 2nd, 3rd and 4th toe osteomyelitis, left 1st metatarsal chronic osteomyelitis noted on the MRI. Status post debridement and amputation of the 2nd and 3rd toes of the right foot and the 1st metatarsal of the left foot by Dr. Shepherd. Plan Plan 1. Hematogeneous Osteomyelitis of the bilateral feet 2/2 Group A Streptococcus Pyogenes infection Second, 3rd and 4th dose of the right foot and the 1st metatarsal of the left foot Status post debridement and amputation, Pod 2 Sepsis POA secondary to above 02/25/2025: Vascular ultrasound and arterial ultrasound negative for arterial insufficiency in the right foot but presence of mild left arterial disease at rest - Blood culture positive for Streptococcus pyogenes, pansensitive 02/27/25: discontinue IV vancomycin and Zosyn (day three) , switch to IV ceftriaxone and metronidazole day one Awaiting Dr. Shepherd recommendations MRI: (left): Acute osteomyelitis noted involving the 2nd, 3rd and 4th toes with overlying skin ulcerations. No drainable fluid collection. MRI: (right): Acute osteomyelitis of the distal half of the 1st metatarsal with an underlying plantar ulcer. No drainable fluid collection 02/28/2025: Continue IV ceftriaxone and metronidazole-day two -follow up with the Dr. Shepherd recommendations and PT eval, wound dressing and care -pain control management 03/01/25: Dr. Leone to see the patient tomorrow for antibiotic adjustment - mild leukocytosis likely stress induced - continue IV Rocephin and Flagyl- day three - wound cultures positive for Gram-positive cocci, pattern of arrangement unspecified - follow echocardiogram due to history of drug abuse and positive blood cultures; last echo in 2014 - ESR trending up; CRP 7.9. Daily trending 03/02/2025: Dr. Shepherd saw the patient and recommended to continue same treatment - leukocytosis improved from yesterday, ESR is trending down to 77, CRP trended down to four -we will continue IV Rocephin and Flagyl day four - echocardiogram showed left ventricle ejection fraction of 50-55% and left atrium dilatation, RVH, concentric LVH, no vegetations suggestive of cardiomyopathy - started the patient on Lantus and short-acting insulin for blood sugars of 321, 200 - planning to discharge to LTAC after ID consultation for antibiotic coverage -changed the pain medications to Dilaudid 1 mg q.4H p.r.n. and [place] 10, two tablets for severe pain and one tablet for moderate pain. DC Valium. Changed Ativan to 1 mg p.o. q.8h p.r.n. 2. Polysubstance abuse Alcohol use disorder On alcohol withdrawal protocol. Continue him on IV thiamine, folic acid and multivitamin. Door Clamp Operator to be consulted in view of the patient's meth and alcohol use disorder. 3. Hypokalemia Hyponatremia 02/28/2025 mild hyponatremia 133, no signs of abnormal new changes neurologically. Monitor CMP daily. 03/01/25: Resolved. Electrolyte replacements as protocol. 03/02/2025: Resolved. On electrolyte replacement protocol 4. History of diabetes mellitus: A1c from 4225-7158 elevated with a max of 9.2 Review again in 2014 showed resolution of the A1c and has maintained normal since Pancreas appears normal on CT scan Blood sugars are in range of 200s and currently on insulin regimen. 5. Cardiomyopathy likely secondary to Methamphetamine use and alcohol echocardiogram showed left ventricle ejection fraction of 50-55% and left atrium dilatation, RVH, concentric LVH, no vegetations suggestive of cardiomyopathy. CODE STATUS: Full code DVT prophylaxis: SCDs GI prophylaxis: P.o. Protonix Diet: Carb controlled diet Disposition: LTAC discharge after ID recommendations. Govind Sierra PGY1, Internal medicine resident Date of Service: March 02, 2025 Billing Provider: LEONARD AUGUSTIN MD Common Visit Codes: [id number] INP/OBS CARE(HIGH) GOVIND SIERRA, RES March 02, 2025 14:57 LEONARD AUGUSTIN MD March 02, 2025 21:11
[2025-03-02] MEDS: HYDROmorphone inj. 0.5 MG/0.5 ML DISP.SYRIN IV PRN (15:05)
--- NOTE | 2025-03-02 16:00 | CONSULTATION ---
DATE OF CONSULTATION: 03/02/2025 DICTATING PHYSICIAN: Vince Leone MD REASON FOR CONSULTATION: I am seeing the patient at the request of Dr. Hardin for evaluation of osteomyelitis and group A streptococcal sepsis. HISTORY OF PRESENT ILLNESS: The patient is a 49-year-old male, who is homeless with a history of polysubstance abuse and required admission to this facility on 02/24 with worsening infection of his feet. He states that he is not diabetic. He has required amputation of his great toes in the past. He is not entirely clear how his current wounds developed. He did have MR imaging performed that showed evidence of osteomyelitis. Dr. Shepherd was consulted and he was taken to the operating room on 02/28. He underwent amputation of the right second and third toes along with the distal aspect of the left first metatarsal. He is complaining of some pain at his feet. He states that he is willing to go to a rehab facility. He is currently receiving ceftriaxone and metronidazole. PAST MEDICAL HISTORY: * Foot infections. * Polysubstance abuse. * Peripheral neuropathy. PAST SURGICAL HISTORY: * Bilateral great toe amputations. * Amputation of right second and third toes. * Amputation of distal left first metatarsal. ALLERGIES: IODINATED CONTRAST. MEDICATIONS: * Ceftriaxone 2 g daily. * Metronidazole. * Lantus. * Humalog. * Folate. * Thiamine. * Multivitamin. * Colace. * Pantoprazole. FAMILY HISTORY: Noncontributory. SOCIAL HISTORY: He is homeless. He has a history of polysubstance abuse. Urine tox screen was positive for opiates and amphetamines. He has a history of alcohol abuse. PHYSICAL EXAMINATION: VITAL SIGNS: He is afebrile with stable vital signs. GENERAL: He is a middle-aged male currently lying in bed, looking stable. HEENT: Sclerae anicteric. Mouth is clear. NECK: Supple. LUNGS: Lungs are clear to auscultation bilaterally. HEART: Regular rate and rhythm. ABDOMEN: Soft without significant tenderness or distention. EXTREMITIES: Both feet were wrapped. I did take both dressings down. The second and third toes have been amputated and the site looks good. The fourth toe is rather unremarkable. At the left foot, he does have a surgical incision with sutures at the first ray. He does have some residual ulceration at the right foot at the plantar aspect. LABORATORY DATA: His white blood cell count is 13,200, hemoglobin 11, platelets 483,000. Creatinine is 0.64. ESR is down to 77 and CRP is down to 4. Blood cultures were positive for group A streptococcus, right foot culture also with group A streptococcus. Left foot culture with gram-positive cocci. He did have an MRI of each foot performed. There was evidence of osteomyelitis of the right second, third, and fourth toes. At the left foot, there was evidence of osteomyelitis involving the distal half of the first metatarsal. IMPRESSION: * Group A streptococcal sepsis related to foot infections. * Bilateral foot osteomyelitis status post amputation of second and third toes of the right foot and distal first metatarsal of the left foot. It is unclear if he has any residual osteomyelitis, although I am concerned about the right fourth toe given his MRI despite its decent appearance. It is also unclear if the margin at the left first metatarsal is clear. It may be reasonable to provide him with a long course of treatment to allow for healing of his wounds and ensure that he does not have any untreated osteomyelitis remaining. PLAN: He will continue with ceftriaxone and metronidazole. I do think it would be a good idea to put him in a medical rehab facility. This would allow him to offload his feet and allow for some healing. He could also receive a 6-week course of antibiotic therapy. I will continue to follow the patient closely, and I thank you for allowing me to participate in his care. Vince Leone MD TID: [id number] RECEIPT: [id number] ELDER/MERLYN
[2025-03-02 18:00] VITALS: BP 97/64; PULSE 88; RESP 18; TEMP 98.1; O2SAT 98
[2025-03-02] MEDS: HYDROcodone/acetaminophen 10/325mg tab PO PRN (18:09)
[2025-03-02 20:00] VITALS: RESP 18; O2SAT 98
[2025-03-02] MEDS: insulin glargine (Lantus) pen - multi-dose SQ SCH (21:58)
[2025-03-02 22:00] VITALS: BP 88/50; PULSE 57; RESP 16; TEMP 97.1; O2SAT 96
[2025-03-03] VITALS (8 sets, daily range): BP systolic 84–116; BP diastolic 49–74; PULSE 67–84; RESP 11–18; TEMP 97.6–101; O2SAT 94–98
[2025-03-03 08:46] LABS: BASOPHILS # (AUTO) 0.1 X10'3 (0-0.2); BASOPHILS % (AUTO) 0.4 % (0-1); EOSINOPHILS # (AUTO) 0.2 X10'3 (0-0.9); EOSINOPHILS % (AUTO) 1.3 % (0-6); HEMATOCRIT 35.3 % (42.0-52.0); HEMOGLOBIN 11.9 g/dl (14.0-17.9); MEAN CORPUSCULAR HGB CONC 33.7 g/dL (33.0-36.5); MEAN CORPUSCULAR VOLUME 85.8 FL (78-98); MEAN PLATELET VOLUME 8.4 FL (7.4-10.4); MONOCYTES # (AUTO) 0.8 X10'3 (0-0.9); MONOCYTES % (AUTO) 5.3 % (2-12); NEUTROPHILS # (AUTO) 6.3 X10'3 (1.8-7.7); PLATELET COUNT 383 X10'3 (140-440); RED BLOOD COUNT 4.11 X10'6 (4.70-6.10); WHITE BLOOD COUNT 14.4 X10'3 (4.5-11.0)
[2025-03-03 09:03] LABS: ALANINE AMINOTRANSFERASE 57 U/L (12-78); ALBUMIN 2.3 G/DL (3.4-5.0); ALBUMIN/GLOBULIN RATIO 0.5 (1.1-1.5); ALKALINE PHOSPHATASE 150 IU/L (46-116); ANION GAP 4 (8-16); ASPARTATE AMINO TRANSFERASE 47 U/L (10-37); BILIRUBIN,TOTAL 0.1 MG/DL (0.1-1.0); BLOOD UREA NITROGEN 20 MG/DL (7-18); BUN/CREATININE RATIO 28.2 (10.0-20.0); CALCIUM 8.5 MG/DL (8.5-10.1); CHLORIDE 103 MMOL/L (99-107); CREATININE 0.71 MG/DL (0.60-1.10); GLUCOSE 124 MG/DL (70-104); POTASSIUM 4.4 MMOL/L (3.5-5.1); SODIUM 137 MMOL/L (135-145); TOTAL CARBON DIOXIDE 29.7 MMOL/L (24-32); TOTAL PROTEIN 6.8 G/DL (6.4-8.2); eCRCL 134 ML/MIN; eGFR > 90 ML/MIN
[2025-03-03 10:00] LABS: TOTAL CELLS COUNTED 100
[2025-03-03 10:02] LABS: PLATELET ESTIMATE NORMAL
--- NOTE | 2025-03-03 16:40 | PROGRESS NOTE- Residence ---
Progress Note - Resident Providers to CC Resident Creating Document: GOVIND SIERRA, [place] ~ Antibiotic Timeout Antibiotic Ordered?: Yes Subjective Seen and examined the patient at bedside today. Patient is less irritable and agitated when compared to the last two days. He is still complaining of the pain but a little bit better than the last few days. Objective Vital Signs Date Time Temp Pulse Resp B/P (MAP) Pulse Ox O2 Delivery O2 Flow Rate FiO2 03/03/25 10:00 98.3 71 16 116/69 (85) 97 Room Air 03/02/25 08:00 2.0 Result Diagram: 03/03/25 0757 03/03/25 0757 General: Awake and Alert, no acute distress. HEENT: Conjunctiva pink, Sclera clear, Mucus Membranes moist. Resp: Unlabored. Lungs clear to auscultation bilaterally. Heart: Regular Rate and rhythm, normal S1 and S2 without murmur, rub or gallop. Abdomen: Soft and non tender no organomegaly Extremities: Right and left feet are looking dry and covered with sterile gauze. Skin: Warm and Dry. Advance Care Planning Advanced Care plannin - 30 Minutes Assessment Assessment This is a 49-year-old male with past medical history of alcohol use disorder, polysubstance abuse, homelessness, history of great toe amputation, was brought to the ER after he [place] down at the [employer] [place]. Complaints of pain, swelling and redness in the bilateral foot. Right 2nd, 3rd and 4th toe osteomyelitis, left 1st metatarsal chronic osteomyelitis noted on the MRI. Status post debridement and amputation of the 2nd and 3rd toes of the right foot and the 1st metatarsal of the left foot by Dr. Shepherd. Currently treating with ceftriaxone and metronidazole. Dr. Gipson is on board Plan Plan 1. Bilateral lower extremity Osteomyelitis with sepsis Status post amputation(right 2nd, 3rd, left 1st metatarsal) and debridement, Pod three 02/25/2025: Vascular ultrasound and arterial ultrasound negative for arterial insufficiency in the right foot but presence of mild left arterial disease at rest - Blood culture positive for Streptococcus pyogenes, pansensitive 02/27/25: discontinue IV vancomycin and Zosyn (day three) , switch to IV ceftriaxone and metronidazole day one Awaiting Dr. Shepherd recommendations MRI: (left): Acute osteomyelitis noted involving the 2nd, 3rd and 4th toes with overlying skin ulcerations. No drainable fluid collection. MRI: (right): Acute osteomyelitis of the distal half of the 1st metatarsal with an underlying plantar ulcer. No drainable fluid collection 02/28/2025: Continue IV ceftriaxone and metronidazole-day two -follow up with the Dr. Shepherd recommendations and PT eval, wound dressing and care -pain control management 03/01/25: Dr. Gipson to see the patient tomorrow for antibiotic adjustment - mild leukocytosis likely stress induced - continue IV Rocephin and Flagyl- day three - wound cultures positive for Gram-positive cocci, pattern of arrangement unspecified - follow echocardiogram due to history of drug abuse and positive blood cultures; last echo in 2014 - ESR trending up; CRP 7.9. Daily trending 03/02/2025: Dr. Shepherd saw the patient and recommended to continue same treatment - leukocytosis improved from yesterday, ESR is trending down to 77, CRP trended down to four -we will continue IV Rocephin and Flagyl day four - echocardiogram showed left ventricle ejection fraction of 50-55% and left atrium dilatation, RVH, concentric LVH, no vegetations suggestive of cardiomyopathy - started the patient on Lantus and short-acting insulin for blood sugars of 321, 200 - planning to discharge to LTAC after ID consultation for antibiotic coverage -changed the pain medications to Dilaudid 1 mg q.4H p.r.n. and [place] 10, two tablets for severe pain and one tablet for moderate pain. DC Valium. Changed Ativan to 1 mg p.o. q.8h p.r.n. 03/03/2025: -He is improving and a little bit better than the yesterday but still he is having the pain over the lower extremities of eight to 9/10 -started the patient on gabapentin 200 mg - Dr. gipson recommended to continue same antibiotics of ceftriaxone and metronidazole for the total duration of six weeks(including the hospital duration) in rehab so we ordered PICC line for antibiotics. Transferred to PCU for higher level of care. 2. Polysubstance abuse Alcohol use disorder On alcohol withdrawal protocol. Continue him on IV thiamine, folic acid and multivitamin. Consulted Habilitation Specialist in view of the patient's meth and alcohol use disorder and he refused most of the information to share with social insurance administrator. 3.Hypokalemia Hyponatremia 02/28/2025 mild hyponatremia 133, no signs of abnormal new changes neurologically. Monitor CMP daily. 03/01/25: Resolved. Electrolyte replacements as protocol. 03/02/2025: Resolved. On electrolyte replacement protocol 03/03/2025. Resolved. On electrolyte replacement protocol 4. History of diabetes mellitus: A1c from 3254-8508 elevated with a max of 9.2 Review again in 2014 showed resolution of the A1c and has maintained normal since Pancreas appears normal on CT scan Blood sugars are in 100s. Discontinued insulin regimen 5. Cardiomyopathy likely secondary to Methamphetamine use and alcohol echocardiogram showed left ventricle ejection fraction of 50-55% and left atrium dilatation, RVH, concentric LVH, no vegetations suggestive of cardiomyopathy. CODE STATUS: Full code DVT prophylaxis: SCDs GI prophylaxis: P.o. Protonix Diet: Carb controlled diet Govind Sierra PGY1, Internal medicine resident Date of Service: March 03, 2025 Billing Provider: LEONARD AUGUSTIN MD Common Visit Codes: [id number] INP/OBS CARE(HIGH) GOVIND SIERRA, RES March 03, 2025 16:40 LEONARD AUGUSTIN MD March 03, 2025 20:03
[2025-03-03] MEDS: LORazepam 1 MG tablet PO PRN (16:46)
[2025-03-03] MEDS: gabapentin 100mg capsule PO SCH (20:36)
[2025-03-03] MEDS: metroNIDAZOLE-Flagyl 500mg/NS 100 ML IV SCH (21:24)
[2025-03-04] VITALS (7 sets, daily range): BP systolic 98–128; BP diastolic 60–85; PULSE 68–86; RESP 10–20; TEMP 97.4–98.8; O2SAT 93–97
[2025-03-04 09:26] LABS: BASOPHILS % (AUTO) 0.2 % (0-1); EOSINOPHILS # (AUTO) 0.3 X10'3 (0-0.9); EOSINOPHILS % (AUTO) 1.9 % (0-6); HEMATOCRIT 34.5 % (42.0-52.0); HEMOGLOBIN 11.7 g/dl (14.0-17.9); LYMPHOCYTES # (AUTO) 6.7 X10'3 (1.1-4.8); LYMPHOCYTES % (AUTO) 44.2 % (21-51); MEAN CORPUSCULAR HEMOGLOBIN 29.2 PG (27.0-31.0); MEAN CORPUSCULAR VOLUME 85.7 FL (78-98); MEAN PLATELET VOLUME 7.7 FL (7.4-10.4); MONOCYTES # (AUTO) 0.6 X10'3 (0-0.9); NEUTROPHILS # (AUTO) 7.5 X10'3 (1.8-7.7); NEUTROPHILS % (AUTO) 49.7 % (42-75); PLATELET COUNT 390 X10'3 (140-440); RED BLOOD COUNT 4.02 X10'6 (4.70-6.10); WHITE BLOOD COUNT 15.2 X10'3 (4.5-11.0)
[2025-03-04 09:43] LABS: ALANINE AMINOTRANSFERASE 81 U/L (12-78); ALBUMIN 2.5 G/DL (3.4-5.0); ALBUMIN/GLOBULIN RATIO 0.6 (1.1-1.5); ALKALINE PHOSPHATASE 138 IU/L (46-116); ANION GAP 8 (8-16); ASPARTATE AMINO TRANSFERASE 57 U/L (10-37); BILIRUBIN,TOTAL 0.2 MG/DL (0.1-1.0); BLOOD UREA NITROGEN 20 MG/DL (7-18); BUN/CREATININE RATIO 24.4 (10.0-20.0); CALCIUM 8.5 MG/DL (8.5-10.1); CHLORIDE 100 MMOL/L (99-107); CREATININE 0.82 MG/DL (0.60-1.10); GLUCOSE 207 MG/DL (70-104); POTASSIUM 4.4 MMOL/L (3.5-5.1); SODIUM 136 MMOL/L (135-145); TOTAL CARBON DIOXIDE 28.4 MMOL/L (24-32); TOTAL PROTEIN 6.9 G/DL (6.4-8.2); eCRCL 116 ML/MIN; eGFR > 90 ML/MIN
--- NOTE | 2025-03-04 13:56 | PROGRESS NOTE- Residence ---
Progress Note - Resident Providers to CC Resident Creating Document: GOVIND SIERRAPARISH ~ Antibiotic Timeout Antibiotic Ordered?: Yes Subjective Seen and examined the patient at bedside today. Patient is still complaining of the pain over the bilateral lower extremities, rated 7/10. He is agitated, irritable in the morning and coded costa. Objective Vital Signs Date Time Temp Pulse Resp B/P (MAP) Pulse Ox O2 Delivery O2 Flow Rate FiO2 03/04/25 11:30 16 03/04/25 08:00 94 Room Air 03/04/25 06:00 61 03/04/25 02:00 98.8 109/60 (76) 03/02/25 08:00 2.0 Result Diagram: 03/04/2590303/04/25 09 General: Awake and Alert, no acute distress. HEENT: Conjunctiva pink, Sclera clear, Mucus Membranes moist. Resp: Unlabored. Lungs clear to auscultation bilaterally. Heart: Regular Rate and rhythm, normal S1 and S2 without murmur, rub or gallop. Abdomen: Soft and non tender no organomegaly Extremities: Bilateral foot covered with dressing. Looking dry . Skin: Warm and Dry. Advance Care Planning Advanced Care plannin - 30 Minutes Assessment Assessment This is a 49-year-old male with past medical history of alcohol use disorder, polysubstance abuse, homelessness, history of great toe amputation, was brought to the ER after he fell down at the [employer]. Complaints of pain, swelling and redness in the bilateral foot. Right 2nd, 3rd and 4th toe osteomyelitis, left 1st metatarsal chronic osteomyelitis noted on the MRI. Status post debridement and amputation of the 2nd and 3rd toes of the right foot and the 1st metatarsal of the left foot by Dr. Shepherd. Currently treating with ceftriaxone and metronidazole. Dr. Gipson is on board Plan Plan 1. Bilateral lower extremity Osteomyelitis with sepsis Status post amputation(right 2nd, 3rd, left 1st metatarsal) and debridement, Pod three 02/25/2025: Vascular ultrasound and arterial ultrasound negative for arterial insufficiency in the right foot but presence of mild left arterial disease at rest - Blood culture positive for Streptococcus pyogenes, pansensitive 02/27/25: discontinue IV vancomycin and Zosyn (day three) , switch to IV ceftriaxone and metronidazole day one Awaiting Dr. Shepherd recommendations MRI: (left): Acute osteomyelitis noted involving the 2nd, 3rd and 4th toes with overlying skin ulcerations. No drainable fluid collection. MRI: (right): Acute osteomyelitis of the distal half of the 1st metatarsal with an underlying plantar ulcer. No drainable fluid collection 02/28/2025: Continue IV ceftriaxone and metronidazole-day two -follow up with the Dr. Shepherd recommendations and PT eval, wound dressing and care -pain control management 03/01/25: Dr. Gipson to see the patient tomorrow for antibiotic adjustment - mild leukocytosis likely stress induced - continue IV Rocephin and Flagyl- day three - wound cultures positive for Gram-positive cocci, pattern of arrangement unspecified - follow echocardiogram due to history of drug abuse and positive blood cultures; last echo in 2014 - ESR trending up; CRP 7.9. Daily trending 03/02/2025: Dr. Shepherd saw the patient and recommended to continue same treatment - leukocytosis improved from yesterday, ESR is trending down to 77, CRP trended down to four -we will continue IV Rocephin and Flagyl day four - echocardiogram showed left ventricle ejection fraction of 50-55% and left atrium dilatation, RVH, concentric LVH, no vegetations suggestive of cardiomyopathy - started the patient on Lantus and short-acting insulin for blood sugars of 321, 200 - planning to discharge to LTAC after ID consultation for antibiotic coverage -changed the pain medications to Dilaudid 1 mg q.4H p.r.n. and [place] 10, two tablets for severe pain and one tablet for moderate pain. DC Valium. Changed Ativan to 1 mg p.o. q.8h p.r.n. 03/03/2025: -He is improving and a little bit better than the yesterday but still he is having the pain over the lower extremities of eight to 9/10 and we are orders in the pain with Dilaudid, gabapentin -started the patient on gabapentin 200 mg - Dr. gipson recommended to continue same antibiotics of ceftriaxone and metronidazole for the total duration of six weeks(including the hospital duration) in rehab so we ordered PICC line for antibiotics. Transferred to PCU for higher level of care. 03/04/2025: - pain is improved from 9/10 to 7/10. White blood cells still staggering over 15 . CRP and ESR is downtrended. Currently continuing antibiotics of ceftriaxone and metronidazole. Planning to transferred to rehab out tomorrow. Referrals need to be sent for rehabs(per wrapper caser). 2. Polysubstance abuse Alcohol use disorder On alcohol withdrawal protocol. on thiamine, folic acid and multivitamin. Consulted Joy Operator in view of the patient's meth and alcohol use disorder and he refused most of the information to share with social security benefits interviewer. 3.Hypokalemia Hyponatremia 02/28/2025 mild hyponatremia 133, no signs of abnormal new changes neurologically. Monitor CMP daily. 03/01/25: Resolved. Electrolyte replacements as protocol. 03/02/2025: Resolved. On electrolyte replacement protocol 03/03/2025. Resolved. On electrolyte replacement protocol 03/04/2025: Sodium and potassium is normal. We will replace with electrolyte replacement protocol. 4. History of diabetes mellitus: HB A1c is 5.6 A1c from 5606-7097 elevated with a max of 9.2 Review again in 2014 showed resolution of the A1c and has maintained normal since Pancreas appears normal on CT scan Blood sugars are in 200s 5. 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 CODE STATUS: Full code DVT prophylaxis: SCDs GI prophylaxis: P.o. Protonix Diet: Carb controlled diet Disposition: Patient is going to rehab on tomorrow. Govind Sierra PGY1, Internal medicine resident Date of Service: March 04, 2025 Billing Provider: LEONARD AUGUSTIN MD Common Visit Codes: [id number] INP/OBS CARE(HIGH) GOVIND SIERRA, [place] March 04, 2025 13:56 LEONARD AUGUSTIN MD March 04, 2025 21:51
[2025-03-05] VITALS (7 sets, daily range): BP systolic 99–130; BP diastolic 48–77; PULSE 60–89; RESP 12–18; TEMP 97.5–98.1; O2SAT 95–100
[2025-03-05 05:37] LABS: BASOPHILS % (AUTO) 0.3 % (0-1); EOSINOPHILS # (AUTO) 0.2 X10'3 (0-0.9); EOSINOPHILS % (AUTO) 1.8 % (0-6); HEMOGLOBIN 11.8 g/dl (14.0-17.9); LYMPHOCYTES # (AUTO) 5.8 X10'3 (1.1-4.8); LYMPHOCYTES % (AUTO) 47.3 % (21-51); MEAN CORPUSCULAR HEMOGLOBIN 28.9 PG (27.0-31.0); MEAN CORPUSCULAR HGB CONC 33.6 g/dL (33.0-36.5); MEAN PLATELET VOLUME 7.8 FL (7.4-10.4); MONOCYTES # (AUTO) 0.7 X10'3 (0-0.9); MONOCYTES % (AUTO) 5.7 % (2-12); NEUTROPHILS # (AUTO) 5.5 X10'3 (1.8-7.7); NEUTROPHILS % (AUTO) 44.9 % (42-75); PLATELET COUNT 378 X10'3 (140-440); RED BLOOD COUNT 4.07 X10'6 (4.70-6.10); RED CELL DISTRIBUTION WIDTH 13.5 % (11.5-14.5); WHITE BLOOD COUNT 12.2 X10'3 (4.5-11.0)
[2025-03-05] MEDS: gabapentin 100mg capsule PO SCH (11:09)
[2025-03-05] MEDS: haloperidol 5mg tablet PO ONE (11:09)
[2025-03-05] MEDS: oxyCODONE/APAP 5-325mg tablet PO PRN (14:54)
--- NOTE | 2025-03-05 18:27 | PROGRESS NOTE- Residence ---
Progress Note - Resident Providers to CC Resident Creating Document: GOVIND SIERRAPARISH ~ Antibiotic Timeout Antibiotic Ordered?: Yes Subjective Seen and examined the patient at bedside today. Patient complained of pain over the bilateral lower extremities, rated 7/10. He is agitated, irritable and upset. No new complaints of cough, fever, SOB & calf pain. Objective Vital Signs Date Time Temp Pulse Resp B/P (MAP) Pulse Ox O2 Delivery O2 Flow Rate FiO2 03/05/25 15:00 98.1 64 18 130/77 (94) Room Air 03/05/25 11:00 96 03/02/25 08:00 2.0 Result Diagram: 03/05/25 0455 03/04/25 0904 General: Awake and Alert, no acute distress. HEENT: Conjunctiva pink, Sclera clear, Mucus Membranes moist. Resp: Unlabored. Lungs clear to auscultation bilaterally. Heart: Regular Rate and rhythm, normal S1 and S2 without murmur, rub or gallop. Abdomen: Soft and non tender no organomegaly Extremities: Bilateral foot covered with dressing. Looking dry . Skin: Warm and Dry. Advance Care Planning Advanced Care plannin - 30 Minutes Assessment Assessment This is a 49-year-old male with past medical history of alcohol use disorder, polysubstance abuse, homelessness, history of great toe amputation, was brought to the ER after he [place] down at the [employer] [place]. Complaints of pain, swelling and redness in the bilateral foot. Right 2nd, 3rd and 4th toe osteomyelitis, left 1st metatarsal chronic osteomyelitis noted on the MRI. Status post debridement and amputation of the 2nd and 3rd toes of the right foot and the 1st metatarsal of the left foot by Dr. Shepherd. Currently treating with ceftriaxone and metronidazole. Dr. Gipson is on board Plan Plan 1. Bilateral lower extremity Osteomyelitis with sepsis Status post amputation(right 2nd, 3rd, left 1st metatarsal) and debridement, Pod three 02/25/2025: Vascular ultrasound and arterial ultrasound negative for arterial insufficiency in the right foot but presence of mild left arterial disease at rest - Blood culture positive for Streptococcus pyogenes, pansensitive 02/27/25: discontinue IV vancomycin and Zosyn (day three) , switch to IV ceftriaxone and metronidazole day one Awaiting Dr. Shepherd recommendations MRI: (left): Acute osteomyelitis noted involving the 2nd, 3rd and 4th toes with overlying skin ulcerations. No drainable fluid collection. MRI: (right): Acute osteomyelitis of the distal half of the 1st metatarsal with an underlying plantar ulcer. No drainable fluid collection 02/28/2025: Continue IV ceftriaxone and metronidazole-day two -follow up with the Dr. Shepherd recommendations and PT eval, wound dressing and care -pain control management 03/01/25: Dr. Gipson to see the patient tomorrow for antibiotic adjustment - mild leukocytosis likely stress induced - continue IV Rocephin and Flagyl- day three - wound cultures positive for Gram-positive cocci, pattern of arrangement unspecified - follow echocardiogram due to history of drug abuse and positive blood cultures; last echo in 2014 - ESR trending up; CRP 7.9. Daily trending 03/02/2025: Dr. Shepherd saw the patient and recommended to continue same treatment - leukocytosis improved from yesterday, ESR is trending down to 77, CRP trended down to four -we will continue IV Rocephin and Flagyl day four - echocardiogram showed left ventricle ejection fraction of 50-55% and left atrium dilatation, RVH, concentric LVH, no vegetations suggestive of cardiomyopathy - started the patient on Lantus and short-acting insulin for blood sugars of 321, 200 - planning to discharge to LTAC after ID consultation for antibiotic coverage -changed the pain medications to Dilaudid 1 mg q.4H p.r.n. and [place] 10, two tablets for severe pain and one tablet for moderate pain. DC Valium. Changed Ativan to 1 mg p.o. q.8h p.r.n. 03/03/2025: -He is improving and a little bit better than the yesterday but still he is having the pain over the lower extremities of eight to 9/10 and we are orders in the pain with Dilaudid, gabapentin -started the patient on gabapentin 200 mg - Dr. gipson recommended to continue same antibiotics of ceftriaxone and metronidazole for the total duration of six weeks(including the hospital duration) in rehab so we ordered PICC line for antibiotics. Transferred to PCU for higher level of care. 03/04/2025: - pain is improved from 9/10 to 7/10. White blood cells still staggering over 15 . CRP and ESR is downtrended. Currently continuing antibiotics of ceftriaxone and metronidazole. Planning to transferred to rehab out tomorrow. Referrals need to be sent for rehabs(per supportive employment case manager). 03/05/2025 - pain is stable when compared to the yesterday. Leukocyte count, CRP and ESR is downtrended. Changed the pain medication to Percocet 10(2 pills) for severe pain and Percocet five(two pills) for moderate pain. Discontinued fluids. Bumped up the dose of gabapentin to 400. Possible transferr to rehab on tomorrow. 2. Polysubstance abuse Alcohol use disorder On alcohol withdrawal protocol. on thiamine, folic acid and multivitamin. Consulted Journeyman Press Operator in view of the patient's meth and alcohol use disorder and he refused most of the information to share with protective services social worker. 3.Hypokalemia Hyponatremia 02/28/2025 mild hyponatremia 133, no signs of abnormal new changes neurologically. Monitor CMP daily. 03/01/25: Resolved. Electrolyte replacements as protocol. 03/02/2025: Resolved. On electrolyte replacement protocol 03/03/2025. Resolved. On electrolyte replacement protocol 03/04/2025: Sodium and potassium is normal. We will replace with electrolyte replacement protocol. 03/05/2025: Sodium and potassium is okay. On replacement protocol 4. History of diabetes mellitus: HB A1c is 5.6 A1c from 9553-5714 elevated with a max of 9.2 Review again in 2014 showed resolution of the A1c and has maintained normal since Pancreas appears normal on CT scan Blood sugars are in 200s 03/05/2025: Blood sugars are in 200s 5. 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 CODE STATUS: Full code DVT prophylaxis: SCDs GI prophylaxis: P.o. Protonix Diet: Carb controlled diet Disposition: May go to rehab on tomorrow. Govind Sierra PGY1, Internal medicine resident Date of Service: March 05, 2025 Billing Provider: LEONARD AUGUSTIN MD Common Visit Codes: [id number] INP/OBS CARE(HIGH) GOVIND SIERRA, RES March 05, 2025 18:27 LEONARD AUGUSTIN MD March 05, 2025 21:02
[2025-03-05] MEDS: oxyCODONE/APAP 10/325mg tablet PO PRN (21:13)
[2025-03-06 02:00] VITALS: BP 115/75; PULSE 80; RESP 20; TEMP 97.8; O2SAT 98
[2025-03-06 03:52] LABS: ALANINE AMINOTRANSFERASE 77 U/L (12-78); ALBUMIN 2.5 G/DL (3.4-5.0); ALBUMIN/GLOBULIN RATIO 0.6 (1.1-1.5); ALKALINE PHOSPHATASE 120 IU/L (46-116); ANION GAP 5 (8-16); ASPARTATE AMINO TRANSFERASE 38 U/L (10-37); BILIRUBIN,TOTAL 0.1 MG/DL (0.1-1.0); BLOOD UREA NITROGEN 25 MG/DL (7-18); BUN/CREATININE RATIO 27.5 (10.0-20.0); C-REACTIVE PROTEIN 0.97 MG/DL (0.0-0.5); CALCIUM 8.5 MG/DL (8.5-10.1); CHLORIDE 102 MMOL/L (99-107); CREATININE 0.91 MG/DL (0.60-1.10); GLUCOSE 141 MG/DL (70-104); POTASSIUM 4.4 MMOL/L (3.5-5.1); SODIUM 141 MMOL/L (135-145); TOTAL CARBON DIOXIDE 33.7 MMOL/L (24-32); TOTAL PROTEIN 6.9 G/DL (6.4-8.2); eCRCL 105 ML/MIN; eGFR 89 ML/MIN
[2025-03-06] MEDS: haloperidol lactate 5mg/ml inj IM ONE (05:15)
[2025-03-06 07:13] VITALS: BP 120/78; PULSE 73; RESP 18; TEMP 98.9; O2SAT 98
--- NOTE | 2025-03-06 08:43 | DISCHARGE SUMMARY-Residence ---
Discharge Summary Providers to Resident Creating Document: GOVIND SIERRA, RES ~ Discharge Summary Admission Diagnosis: Bilateral foot osteomyelitis Hospital Course DATE OF ADMISSION: 02/25/25 DATE OF DISCHARGE: 03/06/25 CXRAY-NORMAL RT FOOT X RAY FINDINGS: Postsurgical changes related to right hallux amputation. No destructive lytic or sclerotic lesions. No evidence of acute displaced fracture or dislocation. 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 Tiny superficial subcutaneous soft tissue calcific foci IMPRESSION: No evidence of acute osseous abnormality. LEFT FOOT XRAY Postsurgical changes related to left hallux amputation. Soft tissue emphysema is seen in the skin overlaying the head of the first metatarsal bone, clinical correlation to evaluate for localized soft tissue infection/wound is recommended. Degenerative changes of the head of the first metatarsal bone. No destructive lytic or sclerotic lesions. No evidence of acute displaced fracture or dislocation. 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 Tiny superficial subcutaneous soft tissue calcific foci IMPRESSION: No evidence of acute osseous abnormality. Soft tissue emphysema is seen in the skin overlaying the head of the first metatarsal bone in the amputation surgical bed, clinical correlation to evaluate for localized soft tissue infection/wound is recommended. ARTERIAL DOPPLER-NORMAL MRI LEFT FOOOT FINDINGS: Suboptimal motion degraded study. Cortical erosion noted in the plantar aspect of great toe head associated edema that extends to mid shaft compatible with osteomyelitis. Large overlying plantar ulcer is seen. No drainable fluid collection in this limited unenhanced study. 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 Remote great toe amputation. Mild plantar musculature edema that may represent reactive edema or myositis. The visualized plantar fascia is unremarkable. No tenosynovitis of the flexor and extensor tendons. EXAM: MR MRI LOWER EXTREMITY RIGHT; DATE: 02/26/2025 06:33 PM HISTORY: possible osteomyelitis COMPARISON: MRI LOWER EXTREMITY LEFT on DOS: 03/20/19 TECHNIQUE: Multiplanar, multisequence MRI was performed. FINDINGS: Multiple skin ulcerations are noted. There is bone marrow edema and cortical erosion involving the 2nd , 3rd and 4th proximal and middle phalanges. Bone marrow edema noted involving the 3rd distal phalanx . Remote great toe amputation at the level of the MTP joints. No drainable fluid collection noted in this limited unenhanced study. Moderate plantar musculature edema that may reflect reactive edema or myositis. Moderate dorsal foot subcutaneous edema. The flexor and extensor tendons are intact. Visualized plantar fascia is unremarkable. IMPRESSION: 1. Acute osteomyelitis noted involving the 2nd, 3rd and 4th toes with overlying skin ulcerations. No drainable fluid collection. IMPRESSION: FINDINGS: Suboptimal motion degraded study. Cortical erosion noted in the plantar aspect of great toe head associated edema that extends to mid shaft compatible with osteomyelitis. Large overlying plantar ulcer is seen. No drainable fluid collection in this limited unenhanced study. 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 Remote great toe amputation. Mild plantar musculature edema that may represent reactive edema or myositis. The visualized plantar fascia is unremarkable. No tenosynovitis of the flexor and extensor tendons. IMPRESSION: 1. Acute osteomyelitis of the distal half of the 1st metatarsal with an underlying plantar ulcer. No drainable fluid collection. ECHO Conclusion Normal LV size and mildy reduced function. Mild concentric hypertrophy. LVEF is 50-55%. RV is moderately dilated with normal systolic function. Left atrium is moderately dilated. Trileaflet AV appears normal without stenosis. Trace insufficiency. Mild MV annular calcification without stenosis. Trace regurgitation. TV appears structurally normal with mild regurgitation. Normal pericardium. No effusion. Discharge Diagnosis\Comment: b/l osteomyelitis of lower extremity,haemotagenous, s/p amputation& debridement of right 2,3,4, toe& left 1 metatarsal T2 DM POLYSUBSTANCE USE METHAMPHETAMINE USE HYPOKALEMIA HYPONATREMIA CARDIOMYOPATHY 2/2 ALCOHOL + METHAMPHETAMINE Operations\Procedures: Right foot debridement and amputation of the 2nd and 3rd toes. Left foot debridement and amputation of 1st metatarsal midshaft level- Consultants: DR.FERRARO CONLEY Complications: NONE Condition on DC: Stable Discharge Summary: HPI AT THE TIME ODF ADMISSION PER ADMITTING PHYSICAIN 49-year-old male with a past medical history of alcohol use disorder, polysubstance abuse, homelessness was brought in to the ER after the patient fell down at the [employer] and the staff at the [employer] called EMS. Patient complains of pain, swelling and redness in his bilateral foot since the past couple of weeks. He reports nonhealing wound, ulcers on the plantar surface of his feet that have been associated with foul smell and discharge. He has been having worsening fatigue weakness, chills and fever during the last two weeks. He also endorses generalized abdominal discomfort and nausea. He stated that he has had similar infected bilateral greater toes in the past for which they have to be amputated. The patient states that he has been homeless for quite a while, does not see any primary care physician and does not take any medication at home. He endorses drinking one pt of hard liquor every other day and also states that he uses her methamphetamine every day. Patient currently denies any other concerns or complaints. COURSE IN THE HOSPITAL EVAULATED THE PATIENT WITH X RAY,ARTERIAL DOPPLER,MRI AND IT FOUND TO BE B/L OSTEMYELTIS.CONSULTTED leonela [place] Dr.streptococcus pyogenes is positive,patuient is teearted with ceftriaxone & metronidazole.amputation of left ,2,3,[address] metatarsal .pain managem,ent with diluadud,oxycodone,hydromorphine,gabapentin,insul regimen for t2 dm.discharged with antibiotis. examaniation at rthe time of dioschrage General: Awake and Alert, no acute distress. HEENT: Conjunctiva pink, Sclera clear, Mucus Membranes moist. Resp: Unlabored. Lungs clear to auscultation bilaterally. Heart: Regular Rate and rhythm, normal S1 and S2 without murmur, rub or gallop. Abdomen: Soft and non tender no organomegaly Extremities: Bilateral foot covered with dressing. Looking dry . Skin: Warm and Dry. Laboratory Tests Test 03/04/25 09:04 03/05/25 04:55 03/06/25 03:05 White Blood Count 15.2 X10'3 12.2 X10'3 Red Blood Count 4.02 X10'6 4.07 X10'6 Hemoglobin 11.7 g/dl 11.8 g/dl Hematocrit 34.5 % 35.0 % Mean Corpuscular Volume 85.7 FL 86.0 FL Mean Corpuscular Hemoglobin 29.2 PG 28.9 PG Mean Corpuscular Hemoglobin Concent 34.0 g/dL 33.6 g/dL Red Cell Distribution Width 14.0 % 13.5 % Platelet Count 390 X10'3 378 X10'3 Mean Platelet Volume 7.7 FL 7.8 FL Neutrophils (%) (Auto) 49.7 % 44.9 % Lymphocytes (%) (Auto) 44.2 % 47.3 % Monocytes (%) (Auto) 4.0 % 5.7 % Eosinophils (%) (Auto) 1.9 % 1.8 % Basophils (%) (Auto) 0.2 % 0.3 % Neutrophils # (Auto) 7.5 X10'3 5.5 X10'3 Lymphocytes # (Auto) 6.7 X10'3 5.8 X10'3 Monocytes # (Auto) 0.6 X10'3 0.7 X10'3 Eosinophils # (Auto) 0.3 X10'3 0.2 X10'3 Basophils # (Auto) 0.0 X10'3 0.0 X10'3 CBC Comment Sodium Level 136 MMOL/L 141 MMOL/L Potassium Level 4.4 MMOL/L 4.4 MMOL/L Chloride Level 100 MMOL/L 102 MMOL/L Carbon Dioxide Level 28.4 MMOL/L 33.7 MMOL/L Anion Gap 8 5 Blood Urea Nitrogen 20 MG/DL 25 MG/DL Creatinine 0.82 MG/DL 0.91 MG/DL Estimated GFR/1.73 m2 > 90 ML/MIN 89 ML/MIN BUN/Creatinine Ratio 24.4 27.5 Glucose Level 207 MG/DL 141 MG/DL Calcium Level 8.5 MG/DL 8.5 MG/DL Total Bilirubin 0.2 MG/DL 0.1 MG/DL Aspartate Amino Transf (AST/SGOT) 57 U/L 38 U/L Alanine Aminotransferase (ALT/SGPT) 81 U/L 77 U/L Alkaline Phosphatase 138 IU/L 120 IU/L Total Protein 6.9 G/DL 6.9 G/DL Albumin 2.5 G/DL 2.5 G/DL Globulin 4.4 G/DL 4.4 G/DL Albumin/Globulin Ratio 0.6 0.6 Chemistry Comments Erythrocyte Sedimentation Rate 65 MM/HR 67 MM/HR C-Reactive Protein 1.18 MG/DL 0.97 MG/DL Vital Signs Date Time Temp Pulse Resp B/P (MAP) Pulse Ox O2 Delivery O2 Flow Rate FiO2 03/06/25 07:13 98.9 73 18 120/78 (92) 98 Room Air 03/02/25 08:00 2.0 discharge advise continue ceftriaxone ,metronidazole for total duration of 6 weeks wound care fup with ID,orthiopedics,pcp continue pain meication of opercocet,gabapentin,dilauadid continue glcycemic control with metformin, *Problems/Diagnosis: (1) Osteomyelitis (2) Osteomyelitis due to secondary diabetes Total Time Spent on D/C: > 30 Minutes Counseling Services Smoking & Tobacco Cessation: > 10 Minutes Date of Service: March 06, 2025 Billing Provider: LEONARD AUGUSTIN MD Common Visit Codes: [id number] DISCH DAY >30min Problem Qualifiers (1) Osteomyelitis: Osteomyelitis type: other chronic hematogenous Osteomyelitis location: foot Laterality: unspecified laterality Qualified Codes: M86.579 - Other chronic hematogenous osteomyelitis, unspecified ankle and foot GOVIND SIERRA, [place] March 06, 2025 08:31 LEONARD AUGUSTIN MD March 07, 2025 06:41
[2025-03-06 11:00] VITALS: BP 104/59; PULSE 74; RESP 14; TEMP 97.7; O2SAT 95
[2025-03-06] MEDS: HYDROmorphone 1 mg/ml syringe IV ONE (11:38)
== END 2025-03-06 11:30 | DRG 853 ==
LOC: ER 18:41 → UNDOADMIN 02-25 00:38 → ED HOLD 02-25 00:38 → EDBEDREQ 02-25 03:10 → ORTHO 4S 02-25 07:18 → ED HOLD 02-25 07:18 → PACU 02-28 10:54 → ORTHO 4S 02-28 10:54 → PACU 02-28 12:50 → ORTHO 4S 03-03 16:15 → PCU 3S 03-03 16:15 → UNDODISIN 03-06 11:30
PROVIDERS: ADMIT Internal Medicine Critical Care Medicine; ATTEND Internal Medicine
PROC: 0Y6T0Z1 Detachment at Right 3rd Toe, High, Open Approach (ICD-10-PCS; 2025-02-28)
PROC: 0Y6M0Z9 Detachment at Right Foot, Partial 1st Ray, Open Approach (ICD-10-PCS; 2025-02-28)
PROC: 0Y6N0Z9 Detachment at Left Foot, Partial 1st Ray, Open Approach (ICD-10-PCS; 2025-02-28)
PROC: 0Y6R0Z1 Detachment at Right 2nd Toe, High, Open Approach (ICD-10-PCS; principal; 2025-02-28 09:57)
PROC: 02HV33Z Insertion of Infusion Device into Superior Vena Cava, Percutaneous Approach (ICD-10-PCS; 2025-03-03)
PROC: 4A02X4A Measurement of Cardiac Electrical Activity, Guidance, External Approach (ICD-10-PCS; 2025-03-03)
DX: A40.9 Streptococcal sepsis, unspecified (principal); E43 Unspecified severe protein-calorie malnutrition; E11.52 Type 2 diabetes mellitus with diabetic peripheral angiopathy with gangrene; E87.1 Hypo-osmolality and hyponatremia; Z59.00 Homelessness unspecified; M86.8X7 Other osteomyelitis, ankle and foot; I42.6 Alcoholic cardiomyopathy; L97.518 Non-pressure chronic ulcer of other part of right foot with other specified severity; L97.528 Non-pressure chronic ulcer of other part of left foot with other specified severity; E87.6 Hypokalemia; S91.302A Unspecified open wound, left foot, initial encounter; E11.69 Type 2 diabetes mellitus with other specified complication; S91.301A Unspecified open wound, right foot, initial encounter; E11.621 Type 2 diabetes mellitus with foot ulcer; E11.42 Type 2 diabetes mellitus with diabetic polyneuropathy; F41.9 Anxiety disorder, unspecified; F32.A Depression, unspecified; I10 Essential (primary) hypertension; F10.10 Alcohol abuse, uncomplicated; E83.42 Hypomagnesemia; F19.10 Other psychoactive substance abuse, uncomplicated; X58.XXXA Exposure to other specified factors, initial encounter; Y93.89 Activity, other specified; Y92.89 Other specified places as the place of occurrence of the external cause; Y99.8 Other external cause status; Z91.041 Radiographic dye allergy status; Z79.899 Other long term (current) drug therapy; Z68.24 Body mass index [BMI] 24.0-24.9, adult
CPT/HCPCS: 36415; 36569; 71045; 73620; 73718; 76942; 80053; 80061; 80202; 80305; 80320; 81001; 82550; 82948; 83036; 83605; 83735; 83874; 84132; 84145; 84484; 85007; 85025; 85651; 86140; 87040; 87070; 87075; 87077; 87081; 87088; 87186; 93005; 93306; 93922; 93925; 96365; 96366; 96367; 96375; 97116; 97161; 97530; 99291; A4615; A4618; A4649; A6209; A6222; A6258; A6446; A6449; A7000; C1751; G0378; J0131; J0696; J1100; J1171; J1815; J1885; J2003; J2250; J2270; J2405; J2543; J2704; J3010; J3360; J3370; J3411; J3480; J3490; J7030; J7040; J7120